=== PATIENT | female | born 1985 | race Caucasian/White ===

== ENCOUNTER 2021-02-19 15:03 | Outpatient (REF) | payer MEDICAID, SELFPAY | END 2021-02-19 15:04 | disposition home or self-care (01) | LOC: HO.LAB 15:03 | PROVIDERS: Visit Provider Internal Medicine | DX: Z20.822 Contact with and (suspected) exposure to COVID-19 (principal) | CPT/HCPCS: C9803; U0003; U0005 ==

== ENCOUNTER 2021-08-07 10:55 | Emergency (ER) | payer MEDICAID, SELFPAY ==
--- NOTE | ~2021-08-07 | XR_ITS ---
EXAMINATION: XR CHEST CLINICAL INFORMATION: Cough COMPARISON: Previous chest x-ray June 2017 TECHNIQUE: 2 views of the chest were obtained. FINDINGS: No significant abnormality is noted involving the heart, lungs, mediastinum, bony thorax or soft tissues. XR/XR chest 2V IMPRESSION: Unremarkable examination.
[2021-08-07 11:43] VITALS: BP 118/62; PULSE 70; RESP 18; TEMP 36.9; O2SAT 99; BMI 38.2
[2021-08-07 12:54] LABS: COVID-19 Test Negative (Negative)
--- NOTE | 2021-08-07 12:58 | ED_ITS ---
HPI - URI/Sore Throat General Chief Complaint: Upper Respiratory Symptoms Stated Complaint: flu like symptoms Time Seen by Provider: 08/07/21 12:38 Source: patient Mode of arrival: ambulatory Limitations: no limitations History of Present Illness HPI Narrative: 35-year-old female previously healthy here with complaints of sore throat, cough, malaise since Monday. No fevers or chills. Shortness of breath or chest pain. No leg swelling or pain. Related Data Previous Rx's Medication Instructions Recorded azithromycin 250 mg tablet See Rx Instructions .ROUTE 08/07/21 .COMPLEX #6 tab Allergies Allergy/AdvReac Type Severity Reaction Status Date / Time Penicillins Allergy Unknown RASH Unverified 07/16/20 17:28 Review of Systems Review of Systems: Yes all other systems are reviewed and are negative Constitutional: Constitutional: Reports no additional constitutional complaints, Denies body ache(s), Denies chills, Denies fever(s), Denies headache(s), Reports malaise and Denies weakness Eyes: Eyes: Reports no additional eye complaints and Denies change in vision ENT: Reports system reviewed and no additional complaints, except as documented, Denies dizziness, Denies headache(s), Denies nasal congestion, Denies nasal discharge, Denies neck pain and Reports sore throat Cardiovascular: Cardiovascular: Reports no additional cardiovascular complaints, Denies chest pain, Denies leg edema and Denies dyspnea Respiratory: Respiratory: Reports no additional respiratory complaints, Reports cough and Denies dyspnea Gastrointestinal: Gastrointestinal: Reports no additional gastrointestinal complaints, Denies abdominal pain, Denies diarrhea, Denies nausea and Denies vomiting Genitourinary: Genitourinary: Reports no additional female genitourinary complaints and Denies urinary incontinence Musculoskeletal: Musculoskeletal: Reports no additional musculoskeletal complaints, Denies back pain, Denies arthralgias, Denies joint swelling, Denies neck pain, Denies numbness and Denies tingling Integumentary/Breasts: Skin/Breast: Reports system reviewed and no additional complaints, except as docu and Denies rash Neurologic: Reports system reviewed and no additional complaints, except as documented, Denies Abnormal speech present, Denies dizziness, Denies headache(s), Denies numbness, Denies tingling and Denies weakness PMFSH Past Medical History Attestation statement: The following information was validated with the patient. Source: old records reviewed and nursing notes reviewed Medical History delivery delivered Surgical History H/O: hysterectomy Social History Social History Advance Directives: No Advance Directives Information Provided: No Patient : No Physical Exam Vital Signs: Vital Signs: Last Vital Signs Temp 98.4 F 08/07/21 11:43 Pulse 70 08/07/21 11:43 Resp 18 08/07/21 11:43 BP 118/62 08/07/21 11:43 Pulse Ox 99 08/07/21 11:43 Body Mass Index 38.2 Const: General: cooperative, healthy appearing, comfortable and no acute distress Orientation/consciousness: patient oriented x3 Limitations: no limitations HENMT: Head: Yes normal to inspection Ears: hearing grossly normal bilaterally and TM's normal bilaterally General nose exam: Normal external nose present Face and sinus: Yes normal facial exam Mouth: Normal oral and palatal mucosa present Throat: Yes posterior oropharynx normal, Yes tonsils normal and Yes uvula midline Eyes: General: appearance normal, both eyes and all related structures Pupils: Equal, round and reactive pupils present Neck: Neck: Yes normal visual inspection, Yes full ROM, Yes no lymphadenopathy and Yes no meningeal signs Chest: Chest palpation & inspection: normal inspection of the chest Resp: Other: mild exp wheezing Frequent bronchospastic cough Effort & Inspection: normal respiratory effort Cardio: Rate: regular rate Rhythm: regular rhythm Peripheral pulses: Peripheral pulses 2+ throughout GI: Inspection: Yes normal to inspection Palpation (GI): Soft to palpation and nontender Auscultation: normal bowel sounds Back/Spine/Pelvis: Thoracic/Lumbar Spine: thoracic and lumbar spine normal to inspection Skin: General skin exam: no rashes or lesions noted Neuro: General: patient oriented x3, no meningeal signs, no focal motor defic its and normal sensation to monofilament Cranial nerves: Yes Equal, round and reactive pupils present Cognition (Neuro): normal cognition Speech: No Abnormal speech present Gait exam (Neuro): Normal gait present Motor exam (neuro): 5/5 motor strength present throughout Extrem: General: Yes normal to inspection, Yes no pedal edema and Yes no calf tenderness Course Course Course Narrative: URI symptoms since Monday. Stable vital signs. Speaking full sentences. Mild expiratory wheezing on exam. Received albuterol MDI with improvement Likely bronchitis. Chest x-ray and COVID screen negative. Posterior oropharynx not consistent with strep pharyngitis Reviewed worrisome signs and symptoms of when to return to the emergency department. Comfortable discharge home. MDM - URI/Sore Throat Medical Records Attestation: I reviewed the patient's medical records. Lab Data Attestation: I reviewed the patient's lab results. Labs: Lab Results 08/07/21 Range/Units 12:32 COVID-19 (RO) Negative (Negative) COVID-19 Clin Com See Note Discharge Plan Discharge Clinical Impression: Bronchitis, Pharyngitis Patient Disposition: Home, Self-Care Instructions: Pharyngitis (ED), How to Use a Metered-Dose Inhaler (ED), Acute B ronchitis (ED) Additional Instructions: Covid test negative Increase fluids, rest Use inhaler 2 puffs every 4-6 hrs Prescriptions: New azithromycin 250 mg tablet See Rx Instructions .ROUTE .COMPLEX Qty: 6 RF: 0 Referrals: Poonam Mcdonnell MD [Primary Care Provider] - 2 days Interventions: ED Discharge Assessment Last Done: 08/07/21 13:40 Discharge Date/Time: 08/07/21 13:41
[2021-08-07] MEDS: Albuterol Sulfate 90 MCG 8 GM INHALER 2 PUFF INHALE (13:37)
== END 2021-08-07 13:41 | disposition home or self-care (01) ==
PROVIDERS: Emergency Provider Emergency Medicine Emergency Medical Services; PCP Family Medicine
DX: J20.9 Acute bronchitis, unspecified (principal); J02.8 Acute pharyngitis due to other specified organisms; R05.9 Cough, unspecified; Z20.822 Contact with and (suspected) exposure to COVID-19; Z79.899 Other long term (current) drug therapy
CPT/HCPCS: 36415; 71046; 87635; 94640; 99283; 99284

== ENCOUNTER 2022-09-27 02:54 | Emergency (ER) | payer MEDICAID, SELFPAY ==
--- NOTE | ~2022-09-27 | XR_ITS ---
EXAMINATION: XR CHEST CLINICAL INFORMATION: Shortness of breath COMPARISON: 08/07/2021 TECHNIQUE: Frontal view of the chest was obtained. FINDINGS: The lungs are mildly hypoinflated. No focal consolidation is seen. No evidence of pneumothorax, pleural effusion, or pulmonary edema. The cardiomediastinal contour is unremarkable. No acute osseous findings are seen. XR/XR chest 1V IMPRESSION: Low lung volumes without acute findings.
--- NOTE | 2022-09-27 03:04 | ED.URI ---
HPI - URI/Sore Throat General Chief Complaint: Upper Respiratory Symptoms Stated Complaint: SOB, body aches Time Seen by Provider: 09/27/22 02:57 Source: patient Mode of arrival: ambulatory Limitations: no limitations History of Present Illness HPI Narrative: Patient comes emergency room complaining of diffuse body aches, chills, generalized malaise for about 5 days. Patient states that she has also sinus pressure, nasal congestion. Patient initially said in triage that she has shortness of breath, however when I spoke with her she denies shortness of breath or chest pain. No nausea vomiting or diarrhea. Patient took ibuprofen approximately 5 hours ago. Related Data Previous Rx's Medication Instructions Recorded azithromycin 250 mg tablet See Rx Instructions PO .COMPLEX #6 08/07/21 tabs acetaminophen 500 mg tablet 500 mg PO Q6H PRN fever or pain 09/27/22 #20 tabs ibuprofen 600 mg tablet 600 mg PO TID PRN fever or pain 09/27/22 #14 tabs oseltamivir 75 mg capsule (Tamiflu) 75 mg PO BID #10 caps 09/27/22 Allergies Allergy/AdvReac Type Severity Reaction Status Date / Time Penicillins Allergy Unknown RASH Unverified 07/16/20 17:28 Review of Systems Review of Systems: Constitutional : No Weight loss, complaining of chills, fatigue, generalized malaise and weakness ENT/Mouth : No Hearing loss, No Ear Pain, complaining of Nasal Congestion, complaining of bilateral sinus pressure, worse in the forehead,, No Hoarseness, No sore throat, No Rhinorrhea, No Swallowing Difficulty Eyes: No Eye Pain, No Swelling, No Redness, No Foreign Body, No Discharge, No Vision Changes Cardiovascular : No Chest Pain, No SOB, No Dyspnea on Exertion, No Orthopnea, No Edema, No Palpitations Respiratory : Complaining of mild Cough, No Sputum, No Wheezing, No Smoke Exposure, No Dyspnea Gastrointestinal : No Nausea, No Vomiting, No Diarrhea, No Constipation, No abdominal Pain, No Hematochezia, No Melena Genitourinary : no irregular bleeding, No Dysuria, No Urinary Frequency, No Hematuria, No Urinary Incontinence, No Urgency, No Flank Pain, No Urinary Flow Changes, No Hesitancy Musculoskeletal : No joint pain, No Myalgias, No Joint Swelling Skin : No Skin Lesions, No rash Neuro : No Weakness, No Numbness, No Paresthesias, No Loss of Consciousness, No Dizziness, No Headache Psych : No Anxiety/Panic, No Depression, No SI/HI/AH/VH, No Social Issues, Heme/Lymph: No Bruising, No Bleeding,No Lymphadenopathy Endocrine : No Polyuria, No Polydipsia, No Temperature Intolerance [facility] Past Medical History Medical History delivery delivered Surgical History H/O: hysterectomy Physical Exam Vital Signs: Vital Signs: Last Vital Signs Temp 97 F 09/27/22 03:17 Pulse 101 H 09/27/22 03:17 Resp 16 09/27/22 03:17 BP 122/77 09/27/22 03:17 Pulse Ox 97 09/27/22 03:17 O2 Del Method 09/27/22 03:17 BMI result Body Mass Index 38.7 Const: Other: Appearance: Alert. Oriented X3. No acute distress. Eyes: Pupils equal, round and reactive to light. ENT: Pharynx normal. Neck: Normal inspection. Neck supple. No lymph nodes noted. No crepitus CVS: Normal heart rate and rhythm. Pulses normal. Normal S1 and S2 Respiratory: No respiratory distress. Breath sounds normal. No Wheezing. No rales Abdomen: Soft and nontender. No rigidity. No distention. Skin: Skin warm , clammy. Normal skin color. Normal skin turgor. Extremities: No lower extremity edema. No Lacerations. No Rash Neuro: Oriented X 3. No motor deficit. No sensory deficit. Moving all extremities. No slurred speech. CN 2 through 12 grossly intact Psych: calm, cooperative, normal affect Course Course Course Narrative: Vitals pending. Patient seems to have a fever. COVID test, influenza test and chest x-ray is pending. Patient states that she is prone to bronchitis. Patient tested negative for COVID but tested positive for influenza A. 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 MDM - URI/Sore Throat Lab Data Labs: Lab Results 09/27/22 09/27/22 Range/Units 03:03 03:03 COVID-19 (RO) Negative (Negative) COVID-19 Clin Com See Note Influenza Type A (AV) Positive A (Negative) Influenza Type B (AV) Negative (Negative) Influenza A & B Note See Note Imaging Data Chest x-ray: My impression: No opacities or consolidation, pneumonia not suspected. Discharge Plan Discharge Clinical Impression: Influenza A Patient Disposition: Home, Self-Care Instructions: Influenza (ED) Additional Instructions: Your medications have been sent to [facility] in [employer]. Please follow-up with your primary care physician tomorrow. If you have any worsening or new symptoms, please return to the emergency room or call 911 Prescriptions: New oseltamivir [Tamiflu] 75 mg capsule 75 mg PO BID Qty: 10 0RF ibuprofen 600 mg tablet 600 mg PO TID PRN (Reason: fever or pain) Qty: 14 0RF acetaminophen 500 mg tablet 500 mg PO Q6H PRN (Reason: fever or pain) Qty: 20 0RF No Action azithromycin 250 mg tablet See Rx Instructions .ROUTE .COMPLEX Qty: 6 0RF Rx Instructions: take 500 mg today (day 1), then 250 mg for 4 days (days 2-5) Stand Alone Forms: Work/School Release
[2022-09-27 03:17] VITALS: BP 122/77; PULSE 101; RESP 16; TEMP 36.1; O2SAT 97; BMI 38.7
[2022-09-27 03:20] LABS: COVID-19 Test Negative (Negative); IDNOW Serial# BCCEAD1C
[2022-09-27 03:22] LABS: IDNOW Serial# 16C4AD1C; Influenza A Positive (Negative); Influenza B2 Negative (Negative)
[2022-09-27] MEDS: Acetaminophen 325 MG TABLET 975 MG PO (03:34)
== END 2022-09-27 04:02 | disposition home or self-care (01) ==
PROVIDERS: Emergency Provider Emergency Medicine
DX: J10.1 Influenza due to other identified influenza virus with other respiratory manifestations (principal); M79.10 Myalgia, unspecified site; R06.02 Shortness of breath; Z79.899 Other long term (current) drug therapy; Z20.822 Contact with and (suspected) exposure to COVID-19
CPT/HCPCS: 71045; 87502; 87635; 99283; 99284

== ENCOUNTER 2023-03-01 05:20 | Emergency (ER) | payer MEDICAID, SELFPAY ==
[2023-03-01 05:39] VITALS: BP 124/62; PULSE 90; RESP 18; TEMP 36.5; O2SAT 99; BMI 39.5
--- NOTE | 2023-03-01 08:28 | ED.BACK ---
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 Related Data Previous Rx's Medication Instructions Recorded azithromycin 250 mg tablet See Rx Instructions PO .COMPLEX #6 08/07/21 tabs acetaminophen 500 mg tablet 500 mg PO Q6H PRN fever or pain 09/27/22 #20 tabs ibuprofen 600 mg tablet 600 mg PO TID PRN fever or pain 09/27/22 #14 tabs oseltamivir 75 mg capsule (Tamiflu) 75 mg PO BID #10 caps 09/27/22 Allergies Allergy/AdvReac Type Severity Reaction Status Date / Time Penicillins Allergy Unknown RASH Unverified 07/16/20 17:28 Review of Systems Review of Systems: Pertinent positives and negatives as stated in HPI PMFSH Past Medical History Source: nursing notes reviewed Medical History delivery delivered Surgical History H/O: hysterectomy Social History Social History Alcohol intake: unknown Advance Directives: No Advance Directives Information Provided: No Physical Exam Vital Signs: Vital Signs: Last Vital Signs Temp 97.7 F 03/01/23 05:39 Pulse 90 03/01/23 05:39 Resp 18 03/01/23 05:39 BP 124/62 03/01/23 05:39 Pulse Ox 99 03/01/23 05:39 O2 Del Method Room Air 03/01/23 05:39 BMI result Body Mass Index 39.5 VITAL SIGNS: Reviewed. GENERAL: Well developed, well nourished, in no acute distress. HEAD: Normocephalic/atraumatic EYES: PERRLA, EOMI EARS: Ext canals without abnormality, TMs non-bulging and non-erythematous NOSE: Nares patent bilateral OROPHARYNX: no oral lesions noted, posterior pharynx clear and non-erythematous without noted tonsillar enlargement/erythema/exudates NECK: Supple, no adenopathy LUNGS: Normal breath sounds. No adventitious sounds or accessory muscle use. SpO2<99> CARDIOVASCULAR: Regular rate and rhythm without noted murmurs. ABDOMEN: Soft, non-tender, non-distended with bowel sounds. BACK: No midline vertebral tenderness or step-offs. MUSCULOSKELETAL: No tenderness, deformities, or effusions noted on gross inspection. EXTREMITIES: No cyanosis, clubbing or edema. SKIN: Inspection of the skin reveals no rashes NEUROLOGIC: Alert and oriented x 4. Strength and sensation to light touch were grossly intact x 4, DTRs intact. Medical Decision Making Medical Decision Making MDM Narrative: 37-year-old female with chronic back pain no clinical suspicion for cauda equina or spinal abscess, or other red flags. Patient will be provided with combination analgesics to be combined with the muscle relaxant which was provided by her primary care provider. Differential Diagnosis Please see the discussion above External Record Review External record reviewed: Prior outpatient labs Discharge Plan Discharge Clinical Impression: Chronic back pain Patient Disposition: Home, Self-Care Instructions: Back Pain (ED), Lower Back Exercises (ED) Additional Instructions: 1. Tylenol 1000 mg, por v?a oral, cada 6 horas seg?n sea necesario para controlar el dolor. No exceda los 4000 mg dentro de las 24 horas. 2. Ibuprofeno 400 mg, por v?a oral con leche o alimentos, cada 6 horas seg?n sea necesario para controlar el dolor. Le recomiendo que tome yvonne medicamento con Tylenol para mejorar el alivio de los s?ntomas. 3. Las terapias complementarias adicionales pueden ser parches de lidoca?na de venta juan carlos que se aplican en el ?radha de m?xima sensibilidad, as? annel parches de calentamiento de venta juan carlos llamados ThermaCare. 4. Isabella un seguimiento con tejeda proveedor de atenci?n primaria y hable sobre po posible fisioterapia. Regrese a la david de emergencias si los s?ntomas empeoran. 1. Tylenol 1000 mg, orally, every 6 hours as needed for pain control. Do not exceed 4000 mg within 24 hours. 2. Ibuprofen 400 mg, orally with milk or food, every 6 hours as needed for pain control. I recommend that you take this medication with the Tylenol for improved symptom relief. 3. Additional adjunct therapies can be [id number] lidocaine patches apply to area of maximal tenderness as well as [id number] heating patches called ThermaCare. 4. Follow-up with your primary care provider and discuss possible physical therapy. Return to the ER for any worsening symptoms. Prescriptions: No Action azithromycin 250 mg tablet See Rx Instructions .ROUTE .COMPLEX Qty: 6 0RF Rx Instructions: take 500 mg today (day 1), then 250 mg for 4 days (days 2-5) oseltamivir [Tamiflu] 75 mg capsule 75 mg PO BID Qty: 10 0RF ibuprofen 600 mg tablet 600 mg PO TID PRN (Reason: fever or pain) Qty: 14 0RF acetaminophen 500 mg tablet 500 mg PO Q6H PRN (Reason: fever or pain) Qty: 20 0RF Referrals: [facility] [Primary Care Provider] - Print Language: Bulgarian
[2023-03-01 08:38] LABS: Appearance Urine Clear; Color Urine Yellow; Glucose Urine UA Negative (Negative); Leukocyte Esterase Urine Small (1+) (Negative); Nitrite Urine Negative (Negative); PH 5.5 (5.0-9.0); UMIC TRIGGER UACC YES; Urine Blood Negative (Negative); Urine Ketones Negative (Negative); Urine Protein Negative (Neg-Trace)
[2023-03-01 08:39] LABS: UPreg QC Valid YES; Urine Pregnancy NEGATIVE (NEGATIVE)
[2023-03-01 08:41] LABS: Bacteria Urine 1+ (None Seen); Hyaline Casts Urine 0-2 /LPF (0-2); RBC Urine 0-2 /HPF (0-2); UACC Culture Trigger YES
[2023-03-01] MEDS: Acetaminophen 325 MG TABLET 975 MG PO (08:53)
[2023-03-01] MEDS: Ibuprofen 400 MG TABLET PO (08:53)
[2023-03-01] MEDS: Lidocaine 4 % Patch ADH..PATCH 1 PATCH TRANSDERMA (08:54)
== END 2023-03-01 08:57 | disposition home or self-care (01) ==
PROVIDERS: Nurse Practitioner Family; Emergency Provider Student in an Organized Health Care Education/Training Program
DX: G89.29 Other chronic pain (principal); M54.9 Dorsalgia, unspecified
CPT/HCPCS: 81001; 81025; 87086; 99283

== ENCOUNTER 2024-08-20 04:50 | Emergency (ER) | payer MEDICAID, SELFPAY ==
--- NOTE | ~2024-08-20 | XR_ITS ---
EXAMINATION: XR CHEST 2 VIEW CLINICAL INFORMATION: Cough COMPARISON: 08/07/2021 and 09/27/2022 TECHNIQUE: PA and lateral views of the chest obtained. FINDINGS: There are low volumes but the lungs are clear. There are no pleural effusions. The cardiomediastinal silhouette is normal. XR/XR chest 2V IMPRESSION: No acute disease. Electronically signed by: Pierce Angel MD 08/20/2024 09:34 AM EDT
[2024-08-20 04:53] VITALS: BP 115/65; PULSE 107; RESP 18; TEMP 36.8; O2SAT 96; BMI 39.5
[2024-08-20 05:11] LABS: Basophils Percent Auto 0.3 % (0-2); Eosinophils Absolute Auto 0.2 X10*3/uL (0.0-0.4); Eosinophils Percent Auto 2.1 % (0-4); Hematocrit 38.7 % (37.0-47.0); Hemoglobin 13.2 g/dl (12.0-16.0); Imm Gran Abs Auto 0.04 X10*3/uL (0.00-0.03); Imm Gran Pct Auto 0.4 % (0.0-0.4); Lymphocytes Absolute Auto 1.6 X10*3/uL (1.2-4.9); MANUAL DIFF FLAG NO; Mean Corpuscular HGB Conc 34.1 g/dl (31.0-35.0); Mean Corpuscular Hemoglobin 28.8 pg (27.0-33.0); Mean Corpuscular Volume 84.3 fL (80.0-98.0); Mean Platelet Volume 9.4 fL (9.4-12.3); Monocytes Absolute Auto 0.7 X10*3/uL (0.1-1.2); Monocytes Percent Auto 6.7 % (2-11); Neutrophils Absolute Auto 7.3 x10*3/uL (2.0-8.3); Neutrophils Percent Auto 74.5 % (45-73); Platelet Count 270 X10*3/uL (160-400); Red Blood Count 4.59 X10*6/uL (4.20-5.50); Red Cell Distribution Width 12.7 % (11.0-16.0); White Blood Count 9.8 X10*3/uL (4.8-10.8)
[2024-08-20 05:25] LABS: Alanine Aminotransferase 40 U/L (0-31); Albumin Level 4.3 g/dL (3.5-5.0); Alkaline Phosphatase 69 U/L (39-117); Anion Gap 13 (12-20); Aspartate Amino Transferase 26 U/L (5-31); Bilirubin Total 0.7 mg/dL (0.0-1.0); Blood Urea Nitrogen 12 mg/dL (9-16); Calcium 9.3 mg/dL (8.4-10.2); Carbon Dioxide 24 mmol/L (22-29); Chloride 105 mmol/L (96-108); Creatinine Clr Calc Pharmacy 114.9; Estimated Glomerular Filt Rate > 60; Glucose Random 118 mg/dL (60-115); Sodium 138 mmol/L (135-145); Total Protein 7.4 g/dL (6.5-8.0)
[2024-08-20 06:00] VITALS: RESP 15
--- NOTE | 2024-08-20 07:10 | ED_ITS ---
HPI - Headache General Chief Complaint: Headache Stated Complaint: body aches, headache Time Seen by Provider: 08/20/24 06:55 Source: patient Mode of arrival: ambulatory Limitations: no limitations History of Present Illness ED Provider: Elias Shay PA-C HPI Narrative: 39 yo female the ER for evaluation of 3 days of headache and body aches. She reports yesterday she developed worsening of the headache, it involves her left side of her face, behind her eye. She reported some tingling sensation left side of her face that comes and goes. She took some Excedrin migraine for her headache yesterday at noon with no improvement. She denies any vision changes. She reports photophobia. No neck pain. No fever or chills. She has had diffuse body aches and a cough that started yesterday. No known sick contacts. No chest pain, abdominal pain, nausea, vomiting, diarrhea. No urinary symptoms. No weakness or numbness MD elicited complaint: headache Onset (ago): day(s) Onset description: gradually Location: left Severity: moderate Quality & Timing: throbbing Exacerbating factors: light Relieving factors: nothing Context: occurred at rest Associated symptoms: nausea, photophobia, sensitivity to sound, eye pain and cough Treatments prior to arrival: none Related Data Previous Rx's ?Medication ?Instructions ?Recorded azithromycin 250 mg tablet See Rx Instructions PO .COMPLEX #6 08/07/21 tabs acetaminophen 500 mg tablet 500 mg PO Q6H PRN fever or pain 09/27/22 #20 tabs ibuprofen 600 mg tablet 600 mg PO TID PRN fever or pain 09/27/22 #14 tabs oseltamivir 75 mg capsule (Tamiflu) 75 mg PO BID #10 caps 09/27/22 csgtgpowsi-qfvlyytepxenm-lqdlcxrm 1 tab PO Q4-6H PRN headache #10 08/20/24 50 mg-325 mg-40 mg tablet tabs Allergies Allergy/AdvReac Type Severity Reaction Status Date / Time Penicillins Allergy Unknown RASH Verified 08/20/24 04:56 Review of Systems 2 Review of Systems: Yes all other systems are reviewed and are negative [facility] Past Medical History Medical History delivery delivered Surgical History H/O: hysterectomy Social History Social History (System 11/17/23 @ 14:55 by Marylou Baird) Alcohol intake: unknown Smoked in Last 30 Days: No Use of substances other than those prescribed or required for medical reasons: No Advance Directives: No Advance Directives Information Provided: No Do you have a plan to hurt others: No Plan Patient : No Physical Exam 2 Vital Signs: Vital Signs: Last Vital Signs Temp 99.2 F 08/20/24 08:00 Pulse 95 08/20/24 08:00 Resp 15 08/20/24 08:00 BP 103/54 L 08/20/24 08:00 Pulse Ox 96 08/20/24 08:00 O2 Del Method Room Air 08/20/24 08:00 BMI result Body Mass Index 39.5 Appearance: Alert. Oriented X3. No acute distress. Head: normocephalic, atraumatic. Eyes: Pupils equal, round and reactive to light. EOMI. No nystagmus ENT: Pharynx normal. No tonsillar swelling or exudate. Neck: Normal inspection. Neck supple. CVS: Normal heart rate and rhythm. Pulses normal. Respiratory: No respiratory distress. Breath sounds normal. Abdomen: Soft and nontender. +BS x4 Skin: Skin warm and dry. Normal skin color. Normal skin turgor. No rashes. Extremities: No lower extremity edema. No joint swelling. Neuro/psych: Oriented X 3. No motor deficit. No sensory deficit. Nonfocal. CN II-XII intact. Normal speech and cognition. Medications Administered Discontinued Medications Generic Name Dose Route Start Last Admin Trade Name Yolis PRN Reason Stop Dose Admin Acetaminophen/Butalbital/Caffeine 1 tab 08/20/24 07:36 08/20/24 08:11 Butalb/Acetamin/Caff 50/325/40 Tablet PO 08/20/24 07:37 1 tab ONCE ONE Administration Ketorolac Tromethamine 30 mg 08/20/24 07:36 08/20/24 08:11 Ketorolac Tromethamine 30 Mg/Ml Vial IM 08/20/24 07:37 30 mg ONCE ONE Administration Medical Decision Making Medical Decision Making MDM Narrative: 39-year-old female presents to the ER for evaluation of diffuse body aches, left-sided headache for the last 3 days. She has photophobia and nausea with the headache. Denies history of migraines in the past. Clinical presentation is consistent with a migraine headache. She was treated with Fioricet and Toradol. Symptoms improved. Her lab work is unremarkable, no major metabolic derangement, no leukocytosis. She is negative for COVID, flu, RSV. Her chest x-ray is normal. Her lungs are clear on exam and she is oxygenating well. She is nonfocal neurologically. She improved with Fioricet and Toradol. At this time she is stable for discharge home with short course of Fioricet, supportive care and outpatient follow-up. Most likely viral etiology causing migraine headache. Stable for DC. Differential Diagnosis Differential Diagnoses: The differential diagnosis associated with the presentation includes migraine headache, tension headache, viral syndrome Lab Data MDM Lab Attestation statement: I reviewed the patient's lab results. normal CBC, no major metabolic derangement 08/20/24 05:07 08/20/24 05:07 Labs: Lab Results 08/20/24 08/20/24 Range/Units 05:07 07:18 WBC 9.8 (4.8-10.8) X10*3/uL RBC 4.59 (4.20-5.50) X10*6/uL Hgb 13.2 (12.0-16.0) g/dl Hct 38.7 (37.0-47.0) % MCV 84.3 (80.0-98.0) fL MCH 28.8 (27.0-33.0) pg MCHC 34.1 (31.0-35.0) g/dl RDW 12.7 (11.0-16.0) % Plt Count 270 (160-400) X10*3/uL MPV 9.4 (9.4-12.3) fL Immature Gran % (Auto) 0.4 (0.0-0.4) % Neut % (Auto) 74.5 H (45-73) % Lymph % (Auto) 16.0 L (20-40) % [place] % (Auto) 6.7 (2-11) % Eos % (Auto) 2.1 (0-4) % Baso % (Auto) 0.3 (0-2) % Lymph # (Auto) 1.6 (1.2-4.9) X10*3/uL [place] # (Auto) 0.7 (0.1-1.2) X10*3/uL Eos # (Auto) 0.2 (0.0-0.4) X10*3/uL Baso # (Auto) 0.0 (0.0-0.2) X10*3/uL Abs Immat Gran (auto) 0.04 H (0.00-0.03) X10*3/uL Absolute Neuts (auto) 7.3 (2.0-8.3) x10*3/uL Absolute Nucleated RBC 0.000 (0.0-0.012) X10*3/uL Nucleated RBC % (auto) 0.0 (0.0-0.2) /100WBC Sodium 138 (135-145) mmol/L Potassium 4.0 (3.3-5.1) mmol/L Chloride 105 (96-108) mmol/L Carbon Dioxide 24 (22-29) mmol/L Anion Gap 13 (12-20) BUN 12 (9-16) mg/dL Creatinine 0.83 (0.5-1.4) mg/dL Estim Creat Clear Calc 114.9 Estimated GFR > 60 Random Glucose 118 H (60-115) mg/dL Calcium 9.3 (8.4-10.2) mg/dL Total Bilirubin 0.7 (0.0-1.0) mg/dL AST 26 (5-31) U/L ALT 40 H (0-31) U/L Alkaline Phosphatase 69 (39-117) U/L Total Protein 7.4 (6.5-8.0) g/dL Albumin 4.3 (3.5-5.0) g/dL Influenza Type A (PCR) NEGATIVE (Negative) Influenza Type B (PCR) NEGATIVE (Negative) RSV RNA Qual (PCR) NEGATIVE (Negative) SARS-CoV-2 RNA (RT-PCR) NEGATIVE (Negative) Independent Interpretation I performed an independent interpretation of an: Plain X-Ray Interpretation: no focal infiltrate Radiology Impression Discussion of test interpretation with radiology: I have reviewed the radiologist's reading. External Record Review External record reviewed: Outpatient record and Prior outpatient labs Tests considered The following testing was considered but not selected: CT head considered - low suspicion for organic cause Prescription Management I considered prescription management with: Pain Medication Critical Care Time Critical Care Time Critical Care Time: No Discharge Plan Discharge Clinical Impression: Acute viral syndrome Headache Qualifiers: Headache type: unspecified Headache chronicity pattern: unspecified pattern I ntractability: not intractable Qualified Code(s): R51.9 - Headache, unspecified Patient Disposition: Home, Self-Care Instructions: Acute Headache (DC), Viral Syndrome (ED) Additional Instructions: Your lab workup today was unremarkable. You tested negative for COVID, flu, RSV. Your chest x-ray was normal. Your most likely suffering from a viral illness that is causing her symptoms. Recommend rest, plenty of oral hydration. Take fakl-hgp-hvafqkd cold and flu medications as needed for your symptoms. Recommend ibuprofen every 6 hours for headache and body aches. Take the prescribed medication as needed for headaches. Follow-up with her primary care doctor. If you develop new or worsening symptoms call 911 or come back to the ER for further evaluation. Prescriptions: New kqenuvtgsg-xyqtmjfpbrpcf-mbiq 50-325-40 mg tablet 1 tab PO Q4-6H PRN (Reason: headache) Qty: 10 0RF No Action azithromycin 250 mg tablet See Rx Instructions .ROUTE .COMPLEX Qty: 6 0RF Rx Instructions: take 500 mg today (day 1), then 250 mg for 4 days (days 2-5) oseltamivir [Tamiflu] 75 mg capsule 75 mg PO BID Qty: 10 0RF ibuprofen 600 mg tablet 600 mg PO TID PRN (Reason: fever or pain) Qty: 14 0RF acetaminophen 500 mg tablet 500 mg PO Q6H PRN (Reason: fever or pain) Qty: 20 0RF Referrals: Poonam Mcdonnell MD [Primary Care Provider] - Stand Alone Forms: Work/School Release Print Language: Setswana
[2024-08-20 08:00] VITALS: BP 103/54; PULSE 95; RESP 15; TEMP 37.3; O2SAT 96
[2024-08-20 08:08] LABS: Influenza A PCR NEGATIVE (Negative); Influenza B PCR NEGATIVE (Negative); Resp Syncy Virus RNA Qual PCR NEGATIVE (Negative); SARS COV2 PCR INHOUSE NEGATIVE (Negative)
[2024-08-20] MEDS: Butalb/Acetamin/Caff 50/325/40 TABLET 1 TAB PO (08:11)
[2024-08-20] MEDS: Ketorolac Tromethamine 30 MG/ML VIAL IM (08:11)
[2024-08-20 10:33] VITALS: BP 115/68; PULSE 84; RESP 16; TEMP 37.3; O2SAT 97
== END 2024-08-20 10:34 | disposition home or self-care (01) ==
PROVIDERS: Physician Assistant; Emergency Provider Emergency Medicine; PCP Family Medicine
DX: B34.9 Viral infection, unspecified (principal); R51.9 Headache, unspecified; H57.13 Ocular pain, bilateral; M79.10 Myalgia, unspecified site; R11.2 Nausea with vomiting, unspecified; Z03.818 Encounter for observation for suspected exposure to other biological agents ruled out; Z79.899 Other long term (current) drug therapy
CPT/HCPCS: 0241U; 36415; 71046; 80053; 85025; 96372; 99284; J1885

== ENCOUNTER 2024-08-23 06:43 | Emergency (ER) | payer MEDICAID, SELFPAY ==
--- NOTE | ~2024-08-23 | XR_ITS ---
EXAMINATION: XR CHEST CLINICAL INFORMATION: Cough. Fever. COMPARISON: Most recent chest radiograph dated 08/20/2024. TECHNIQUE: 2 views of the chest were obtained. FINDINGS: New airspace opacity within the posterior left lower lobe, not seen on the prior x-ray and concerning for early pneumonia. No pleural effusion or pneumothorax. Stable cardiomediastinal silhouette. XR/XR chest 2V IMPRESSION: New airspace opacity within the posterior left lower lobe, concerning for early pneumonia. Electronically signed by: Yung Eli MD 08/23/2024 10:17 AM EDT
[2024-08-23 06:56] VITALS: BP 121/71; PULSE 123; RESP 20; TEMP 38.4; O2SAT 96; BMI 39.5
--- NOTE | 2024-08-23 07:12 | ED.GENADULT ---
HPI - General Adult General Chief complaint: General Medical Stated complaint: migraine, fever Time Seen by Provider: 08/23/24 07:11 Source: patient, RN notes reviewed and old records reviewed Mode of arrival: ambulatory Limitations: no limitations History of Present Illness ED Provider: Elias Shay PA-C HPI narrative: 39 yo female presents to the ER for evaluation of over 1 week of ongoing headaches, dizziness, nausea, intermittent fevers, poor appetite and weakness. She also reports a cough and general malaise. She was seen here 5 days ago and had an unremarkable workup, discharged with instructions for supportive care for likely viral illness. Patient reports over the last week she has still been feeling unwell. She had 2 episodes of vomiting this week. She has been nauseous with poor appetite. She has a dry cough. No difficulty breathing or chest pain. She reports her headache was on the left side now it is posterior headache, she has no neck pain. No rashes. No recent tick bites. No joint swelling. No known sick contacts. MD complaint: weakness, fever Onset (ago): week(s) (1) Location: head Radiation: non-radiation Severity: moderate Quality: aching Pain Consistency: constant Relieving factors: none Exacerbating factors: none Associated symptoms: cough, fever/chills, headaches, loss of appetite, nausea/vomiting and weakness Treatments prior to arrival: none Related Data Previous Rx's ?Medication ?Instructions ?Recorded azithromycin 250 mg tablet See Rx Instructions PO .COMPLEX #6 08/07/21 tabs acetaminophen 500 mg tablet 500 mg PO Q6H PRN fever or pain 09/27/22 #20 tabs ibuprofen 600 mg tablet 600 mg PO TID PRN fever or pain 09/27/22 #14 tabs oseltamivir 75 mg capsule (Tamiflu) 75 mg PO BID #10 caps 09/27/22 vcasgxesie-gpceftslxokbe-drjwuaox 1 tab PO Q4-6H PRN headache #10 08/20/24 50 mg-325 mg-40 mg tablet tabs azithromycin 250 mg tablet See Rx Instructions PO .COMPLEX #6 08/23/24 (Zithromax Z-Amari) tabs cefpodoxime 200 mg tablet 200 mg PO BID #14 tabs 08/23/24 Allergies Allergy/AdvReac Type Severity Reaction Status Date / Time Penicillins Allergy Unknown RASH Verified 08/23/24 06:58 Review of Systems Review of Systems: Yes all other systems are reviewed and are negative [facility] Past Medical History Medical History delivery delivered Surgical History H/O: hysterectomy Social History Social History (System 11/17/23 @ 14:55 by Marylou Baird) Alcohol intake: unknown Smoked in Last 30 Days: No Use of substances other than those prescribed or required for medical reasons: No Advance Directives: No Advance Directives Information Provided: Yes Patient : No Physical Exam ED Vital Signs: Vital Signs - 24 hr 08/23/24 06:56 08/23/24 08:03 08/23/24 09:06 Temperature 101.2 F H 98.4 F Pulse Rate 123 H 99 89 Respiratory Rate 20 14 16 Blood Pressure 121/71 117/63 102/59 L Pulse Oximetry 96 94 94 Oxygen Delivery Method Room Air Room Air Room Air 08/23/24 09:44 Temperature 98.5 F Pulse Rate 74 Respiratory Rate 16 Blood Pressure 104/57 L Pulse Oximetry 95 Oxygen Delivery Method Room Air BMI result Body Mass Index 39.5 Appearance: Alert. Oriented X3. No acute distress. Head: normocephalic, atraumatic. Eyes: Pupils equal, round and reactive to light. ENT: Pharynx normal. No tonsillar swelling or exudate. Neck: Normal inspection. Neck supple. CVS: Normal heart rate and rhythm. Pulses normal. Respiratory: No respiratory distress. Breath sounds normal. Abdomen: Soft and nontender. +BS x4 Skin: Skin warm and dry. Normal skin color. Normal skin turgor. No rashes. Extremities: No lower extremity edema. No joint swelling. Neuro/psych: Oriented X 3. No motor deficit. No sensory deficit. CN II-XII intact. Normal speech and cognition. Medications Administered Discontinued Medications Generic Name Dose Route Start Last Admin Trade Name Freq PRN Reason Stop Dose Admin Acetaminophen 975 mg 08/23/24 07:11 08/23/24 07:56 Acetaminophen 325 Mg Tablet PO 08/23/24 07:12 975 mg ONCE ONE Administration Lactated Ringer's 1,000 mls @ 999 mls/hr 08/23/24 07:15 08/23/24 09:00 Lr IV 08/23/24 08:15 Infused .Q1H1M MEENA Infusion Ketorolac Tromethamine 30 mg 08/23/24 07:49 08/23/24 07:59 Ketorolac Tromethamine 30 Mg/Ml Vial IVPUSH 08/23/24 07:50 30 mg ONCE ONE Administration Ondansetron HCl 4 mg 08/23/24 07:49 08/23/24 07:59 Ondansetron Hcl 4 Mg/2 Ml Vial IVPUSH 08/23/24 07:50 4 mg ONCE ONE Administration Medical Decision Making Medical Decision Making [facility] Narrative: 39-year-old female presents to the ER for evaluation of over 1 week of headaches, dizziness, nausea, intermittent fevers, poor appetite, weakness and coughing. She is febrile and tachycardic on arrival. She is nontoxic appearing. She is not hypoxic, not in any distress. Unremarkable workup when she was here on Monday. Repeat testing today shows no leukocytosis, no anemia. No significant metabolic derangement on her chemistry. No signs of dehydration. An IV was established and she was given IV fluids, Toradol, Tylenol and Zofran. She was feeling symptomatically better. She tested negative for COVID, flu, RSV. Chest x-ray showing a new left lower lobe infiltrate consistent with early pneumonia. She is not hypoxic. She also has a possible urinary tract infection. Will treat with azithromycin and cefpodoxime for community-acquired pneumonia, this will also treat potential UTI. At this time comfortable discharge home with oral antibiotics and supportive care. Patient agrees with plan and return precautions were discussed. Differential Diagnosis Differential Diagnoses: The differential diagnosis associated with the presentation includes Pneumonia, UTI, COVID, flu, viral meningitis, low suspicion for intra-abdominal process or bacterial meningitis Admission/Observation Consideration of admission/observation: Escalation of care including admission/observation considered Lab Data [facility] Lab Attestation statement: I reviewed the patient's lab results. Normal CBC, no major metabolic derangement, elevated inflammatory marker 08/23/24 07:09 08/23/24 07:09 Labs: Lab Results 08/23/24 08/23/24 08/23/24 Range/Units 07:09 07:54 09:48 WBC 9.3 (4.8-10.8) X10*3/uL RBC 4.84 (4.20-5.50) X10*6/uL Hgb 14.0 (12.0-16.0) g/dl Hct 40.6 (37.0-47.0) % MCV 83.9 (80.0-98.0) fL MCH 28.9 (27.0-33.0) pg MCHC 34.5 (31.0-35.0) g/dl RDW 13.0 (11.0-16.0) % Plt Count 223 (160-400) X10*3/uL MPV 9.3 L (9.4-12.3) fL Immature Gran % (Auto) 0.5 H (0.0-0.4) % Neut % (Auto) 81.4 H (45-73) % Lymph % (Auto) 10.2 L (20-40) % [place] % (Auto) 7.1 (2-11) % Eos % (Auto) 0.4 (0-4) % Baso % (Auto) 0.4 (0-2) % Lymph # (Auto) 1.0 L (1.2-4.9) X10*3/uL [place] # (Auto) 0.7 (0.1-1.2) X10*3/uL Eos # (Auto) 0.0 (0.0-0.4) X10*3/uL Baso # (Auto) 0.0 (0.0-0.2) X10*3/uL Abs Immat Gran (auto) 0.05 H (0.00-0.03) X10*3/uL Absolute Neuts (auto) 7.6 (2.0-8.3) x10*3/uL Absolute Nucleated RBC 0.000 (0.0-0.012) X10*3/uL Nucleated RBC % (auto) 0.0 (0.0-0.2) /100WBC ESR 67 H (0-20) MM/HR Sodium 137 (135-145) mmol/L Potassium 4.1 (3.3-5.1) mmol/L Chloride 99 (96-108) mmol/L Carbon Dioxide 26 (22-29) mmol/L Anion Gap 16 (12-20) BUN 9 (9-16) mg/dL Creatinine 1.02 (0.5-1.4) mg/dL Estim Creat Clear Calc 93.5 Estimated GFR > 60 Random Glucose 192 H (60-115) mg/dL Lactic Acid 1.8 (0.5-2.0) mmol/L Calcium 9.5 (8.4-10.2) mg/dL Total Bilirubin 0.7 (0.0-1.0) mg/dL AST 28 (5-31) U/L ALT 39 H (0-31) U/L Alkaline Phosphatase 68 (39-117) U/L C-Reactive Protein 12.67 H (< or = 0.50) mg/dL Total Protein 8.1 H (6.5-8.0) g/dL Albumin 4.3 (3.5-5.0) g/dL Beta HCG, Quant < 2 mIU/mL Urine Color Yellow Urine Appearance Cloudy Urine pH 6.0 (5.0-9.0) Ur Specific [place] 1.015 (1.005-1.025) Urine Protein Negative (Neg-Trace) mg/dL Urine Glucose (UA) Negative (Negative) mg/dL Urine Ketones Negative (Negative) mg/dL Urine Blood Negative (Negative) Urine Nitrite Negative (Negative) Ur Leukocyte Esterase Moderate (2+) H (Negative) Urine RBC 0-2 (0-2) /HPF Urine WBC 11-20 H (0-5) /HPF Ur Squamous Epith Cells >20 (0-2) /HPF Urine Bacteria 4+ (None Seen) Hyaline Casts 0-2 (0-2) /LPF Influenza Type A (PCR) NEGATIVE (Negative) Influenza Type B (PCR) NEGATIVE (Negative) RSV RNA Qual (PCR) NEGATIVE (Negative) SARS-CoV-2 RNA (RT-PCR) NEGATIVE (Negative) Independent Interpretation I performed an independent interpretation of an: Plain X-Ray Interpretation: Chest x-ray with subtle left lower lobe opacities Radiology Impression Discussion of test interpretation with radiology: I have reviewed the radiologist's reading. Independent Historian Clinical information obtained from an independent historian. History obtained from or confirmed by: Spouse External Record Review External record reviewed: Outpatient record, Prior outpatient labs and Prior outpatient radiology Prescription Management I considered prescription management with: Pain Medication and Antibiotic Critical Care Time Critical Care Time Critical Care Time: No Discharge Plan Discharge Clinical Impression: CAP (community acquired pneumonia), UTI (urinary tract infection) Patient Disposition: Home, Self-Care Instructions: Urinary Tract Infection in Women (DC), Community Acquired Pneumonia (DC) Additional Instructions: Your lab workup today was reassuring. Your x-ray showed early pneumonia in the left lower lung. Your urine test was consistent with a urinary tract infection. Take the prescribed antibiotics as directed, complete the entire course and do not miss any doses Rest and drink plenty of fluids Take Motrin Tylenol as needed for headaches and fevers. Follow-up with your doctor If you develop new or worsening symptoms call 911 or come back to the ER for further evaluation. Prescriptions: New azithromycin [Zithromax Z-Amari] 250 mg tablet See Rx Instructions .ROUTE .COMPLEX Qty: 6 0RF Rx Instructions: take 500 mg today (day 1), then 250 mg for 4 days (days 2-5) cefpodoxime 200 mg tablet 200 mg PO BID Qty: 14 0RF Rx Instructions: must administer with a meal/food No Action azithromycin 250 mg tablet See Rx Instructions .ROUTE .COMPLEX Qty: 6 0RF Rx Instructions: take 500 mg today (day 1), then 250 mg for 4 days (days 2-5) oseltamivir [Tamiflu] 75 mg capsule 75 mg PO BID Qty: 10 0RF ibuprofen 600 mg tablet 600 mg PO TID PRN (Reason: fever or pain) Qty: 14 0RF acetaminophen 500 mg tablet 500 mg PO Q6H PRN (Reason: fever or pain) Qty: 20 0RF mizhkgvqzn-kujzidfsssygj-spkd 50-325-40 mg tablet 1 tab PO Q4-6H PRN (Reason: headache) Qty: 10 0RF Stand Alone Forms: Work/School Release Print Language: Kyrgyz
[2024-08-23 07:13] LABS: MANUAL DIFF FLAG NO
--- NOTE | 2024-08-23 07:15 | PC.NURSE ---
a&ox4. sinus tachycardic on the surveillance system monitor. pt denies any chest pain/palpitations. pt currently febrile - states she last took tylenol @ 2200 last night w/ no relief. pt represents to the ED w/ same sx as to when she presented to the ED on monday. pt reports increased weakness, decreased PO intake, left sided CRUZ w/ associated dizziness/lightheadedness and nausea/vomiting. pt denies abd pain. nontender w/ palpation. 20gIV placed in the left AC - labs obtained/sent to lab. on RA w/o difficulty. no sob/wob noted. respirations even/unlabored. plan of care ongoing. call goodwin placed within reach.
[2024-08-23 07:17] LABS: Basophils Percent Auto 0.4 % (0-2); Eosinophils Percent Auto 0.4 % (0-4); Hematocrit 40.6 % (37.0-47.0); Imm Gran Abs Auto 0.05 X10*3/uL (0.00-0.03); Imm Gran Pct Auto 0.5 % (0.0-0.4); Lymphocytes Percent Auto 10.2 % (20-40); Mean Corpuscular HGB Conc 34.5 g/dl (31.0-35.0); Mean Corpuscular Hemoglobin 28.9 pg (27.0-33.0); Mean Corpuscular Volume 83.9 fL (80.0-98.0); Mean Platelet Volume 9.3 fL (9.4-12.3); Monocytes Absolute Auto 0.7 X10*3/uL (0.1-1.2); Monocytes Percent Auto 7.1 % (2-11); Neutrophils Absolute Auto 7.6 x10*3/uL (2.0-8.3); Neutrophils Percent Auto 81.4 % (45-73); Platelet Count 223 X10*3/uL (160-400); Red Blood Count 4.84 X10*6/uL (4.20-5.50); White Blood Count 9.3 X10*3/uL (4.8-10.8)
[2024-08-23 07:40] LABS: Alanine Aminotransferase 39 U/L (0-31); Albumin Level 4.3 g/dL (3.5-5.0); Alkaline Phosphatase 68 U/L (39-117); Anion Gap 16 (12-20); Aspartate Amino Transferase 28 U/L (5-31); Bilirubin Total 0.7 mg/dL (0.0-1.0); Blood Urea Nitrogen 9 mg/dL (9-16); C Reactive Protein 12.67 mg/dL (< or = 0.50); Calcium 9.5 mg/dL (8.4-10.2); Carbon Dioxide 26 mmol/L (22-29); Chloride 99 mmol/L (96-108); Creatinine Clr Calc Pharmacy 93.5; Estimated Glomerular Filt Rate > 60; Glucose Random 192 mg/dL (60-115); Potassium 4.1 mmol/L (3.3-5.1); Sodium 137 mmol/L (135-145); Total Protein 8.1 g/dL (6.5-8.0)
[2024-08-23 07:46] LABS: HCG Quantitative < 2 mIU/mL
[2024-08-23 07:51] LABS: Influenza A PCR NEGATIVE (Negative); Influenza B PCR NEGATIVE (Negative); Resp Syncy Virus RNA Qual PCR NEGATIVE (Negative); SARS COV2 PCR INHOUSE NEGATIVE (Negative)
[2024-08-23] MEDS: Lactated Ringers 1,000 ML 999 ML IV (07:56)
[2024-08-23] MEDS: Acetaminophen 325 MG TABLET 975 MG PO (07:56)
--- NOTE | 2024-08-23 07:57 | PC.NURSE ---
cultures obtained/sent to lab. IVF administered per provider order. pt currently remains febrile. Tylenol administered for fever - effectiveness pending. pt remains sinus tachycardic on the quality assurance monitor final. denies chest pain/palpitations. VS otherwise remain WNL. no sob/wob noted. respirations remain even/unlabored. plan of care ongoing. call goodwin placed within reach.
[2024-08-23] MEDS: ondansetron HCL 4 MG/2 ML VIAL IVPUSH (07:59)
[2024-08-23] MEDS: Ketorolac Tromethamine 30 MG/ML VIAL IVPUSH (07:59)
[2024-08-23 08:03] VITALS: BP 117/63; PULSE 99; RESP 14; O2SAT 94
[2024-08-23 08:12] LABS: Lactic Acid 1.8 mmol/L (0.5-2.0)
[2024-08-23 08:48] LABS: Erythrocyte Sedimentation Rate 67 MM/HR (0-20)
[2024-08-23 09:06] VITALS: BP 102/59; PULSE 89; RESP 16; TEMP 36.9; O2SAT 94
--- NOTE | 2024-08-23 09:06 | PC.NURSE ---
pt returned from xray at this time. pt aware that UA is still needed at this time. states she does not have to go. will reattempt shortly.
[2024-08-23 09:44] VITALS: BP 104/57; PULSE 74; RESP 16; TEMP 36.9; O2SAT 95
--- NOTE | 2024-08-23 09:45 | PC.NURSE ---
urine obtained/sent to lab.
[2024-08-23 10:01] LABS: Appearance Urine Cloudy; Color Urine Yellow; Glucose Urine UA Negative (Negative); Leukocyte Esterase Urine Moderate (2+) (Negative); Nitrite Urine Negative (Negative); Specific Gravity - Urine 1.015 (1.005-1.025); UMIC TRIGGER UACC YES; Urine Blood Negative (Negative); Urine Ketones Negative (Negative); Urine Protein Negative (Neg-Trace)
[2024-08-23 10:24] LABS: Bacteria Urine 4+ (None Seen); Hyaline Casts Urine 0-2 /LPF (0-2); RBC Urine 0-2 /HPF (0-2); Squamous Epithelial Cell Urine >20 /HPF (0-2); UACC Culture Trigger YES
[2024-08-23 11:08] VITALS: BP 104/57; PULSE 74; RESP 16; TEMP 36.9; O2SAT 95
[2024-08-26 22:19] LABS: A. Phagocytphilium DNA,RT-PCR NOT DETECTED (NOT DETECTED); Babesia Microti DNA, RT-PCR NOT DETECTED (NOT DETECTED); Borrelia Miyamotoi,DNA RT-PCR NOT DETECTED (NOT DETECTED); E.Chaffeensis DNA RT-PCR NOT DETECTED (NOT DETECTED); Lyme(Borrelia ssp)DNA RT-PCR NOT DETECTED (NOT DETECTED)
[2024-08-27 16:14] LABS: Lyme Abs Screen <0.90 index
== END 2024-08-23 11:10 | disposition home or self-care (01) ==
PROVIDERS: Physician Assistant; Emergency Provider Emergency Medicine Emergency Medical Services
DX: J18.9 Pneumonia, unspecified organism (principal); N39.0 Urinary tract infection, site not specified; G43.901 Migraine, unspecified, not intractable, with status migrainosus; R42 Dizziness and giddiness; R50.9 Fever, unspecified; R00.0 Tachycardia, unspecified; R11.2 Nausea with vomiting, unspecified; R53.1 Weakness; Z03.818 Encounter for observation for suspected exposure to other biological agents ruled out; Z79.899 Other long term (current) drug therapy
CPT/HCPCS: 0241U; 36415; 71046; 80053; 81001; 81003; 83605; 84702; 85025; 85652; 86140; 86617; 86618; 87040; 87086; 87468; 87469; 87478; 87484; 87798; 96361; 96374; 96375; 99284; J1885; J2405; J7120

== ENCOUNTER 2024-08-31 20:59 | Emergency (ER) | payer MEDICAID, SELFPAY ==
[2024-08-31 21:25] VITALS: BP 113/64; PULSE 82; RESP 18; TEMP 36.6; O2SAT 99; BMI 39.5
[2024-08-31 21:52] LABS: MANUAL DIFF FLAG NO
[2024-08-31 21:54] LABS: Basophils Percent Auto 0.3 % (0-2); Eosinophils Absolute Auto 0.4 X10*3/uL (0.0-0.4); Eosinophils Percent Auto 3.7 % (0-4); Hematocrit 36.2 % (37.0-47.0); Hemoglobin 12.4 g/dl (12.0-16.0); Imm Gran Pct Auto 1.1 % (0.0-0.4); Lymphocytes Absolute Auto 1.6 X10*3/uL (1.2-4.9); Lymphocytes Percent Auto 16.9 % (20-40); Mean Corpuscular HGB Conc 34.3 g/dl (31.0-35.0); Mean Corpuscular Hemoglobin 28.8 pg (27.0-33.0); Mean Corpuscular Volume 84.2 fL (80.0-98.0); Mean Platelet Volume 9.3 fL (9.4-12.3); Monocytes Absolute Auto 0.7 X10*3/uL (0.1-1.2); Monocytes Percent Auto 7.2 % (2-11); Neutrophils Absolute Auto 6.6 x10*3/uL (2.0-8.3); Neutrophils Percent Auto 70.8 % (45-73); Platelet Count 350 X10*3/uL (160-400); Red Cell Distribution Width 12.9 % (11.0-16.0); White Blood Count 9.4 X10*3/uL (4.8-10.8)
[2024-08-31 22:20] LABS: Alanine Aminotransferase 76 U/L (0-31); Albumin Level 4.2 g/dL (3.5-5.0); Alkaline Phosphatase 62 U/L (39-117); Anion Gap 18 (12-20); Aspartate Amino Transferase 31 U/L (5-31); Bilirubin Total 0.4 mg/dL (0.0-1.0); Blood Urea Nitrogen 13 mg/dL (9-16); Calcium 9.5 mg/dL (8.4-10.2); Carbon Dioxide 21 mmol/L (22-29); Chloride 105 mmol/L (96-108); Creatinine Clr Calc Pharmacy 142.4; Estimated Glomerular Filt Rate > 60; Glucose Random 138 mg/dL (60-115); Potassium 4.1 mmol/L (3.3-5.1); Sodium 140 mmol/L (135-145); Total Protein 7.4 g/dL (6.5-8.0)
[2024-09-01 00:25] LABS: Appearance Urine Turbid; Color Urine Yellow; Glucose Urine UA Negative (Negative); Leukocyte Esterase Urine Negative (Negative); Nitrite Urine Negative (Negative); PH 7.5 (5.0-9.0); Urine Blood Negative (Negative); Urine Ketones Negative (Negative); Urine Protein Negative (Neg-Trace)
[2024-09-01 00:28] LABS: Bacteria Urine Trace (None Seen); Hyaline Casts Urine 0-2 /LPF (0-2); RBC Urine 0-2 /HPF (0-2); WBC Urine 0-5 /HPF (0-5)
--- NOTE | 2024-09-01 01:23 | ECG_ITS ---
Test Reason : dizziness Blood Pressure : / mmHG Vent. Rate : 067 BPM Atrial Rate : 067 BPM P-R Int : 164 ms QRS Dur : 086 ms QT Int : 420 ms P-R-T Axes : 028 013 014 degrees QTc Int : 443 ms Normal sinus rhythm Normal ECG No significant changes when compared with the previous EKG of 19 jul 2017 Referred By: Brigitte Arita Electronically Signed By:ADALBERTO LANE
--- NOTE | 2024-09-01 01:28 | ED_ITS ---
HPI - Dizziness General Chief Complaint: Dizziness Stated Complaint: dizzy/vomiting Time Seen by Provider: 09/01/24 00:23 Source: patient Mode of arrival: ambulatory Limitations: no limitations History of Present Illness ED Provider: Dr. Brigitte Arita HPI Narrative: patient comes to the emergency room complaining of Intermittent room spinning. According to the patient, 2 hours ago, patient had sudden onset of feeling that the room is spinning. Patient states that she vomited, so a little streak of blood in the vomit. Patient states that she recently recovered forearm pneumonia, took antibiotics until yesterday. Patient denies any chest pain or shortness of breath. No ear pain. Patient states that if she turns her head in certain ways, she gets very dizzy. If she is sitting without moving or moving her head, she has no dizziness. Related Data Previous Rx's ?Medication ?Instructions ?Recorded azithromycin 250 mg tablet See Rx Instructions PO .COMPLEX #6 08/07/21 tabs acetaminophen 500 mg tablet 500 mg PO Q6H PRN fever or pain 09/27/22 #20 tabs ibuprofen 600 mg tablet 600 mg PO TID PRN fever or pain 09/27/22 #14 tabs oseltamivir 75 mg capsule (Tamiflu) 75 mg PO BID #10 caps 09/27/22 [id number]-tmojjkmqcjzlz-fnwrudzu 1 tab PO Q4-6H PRN headache #10 08/20/24 50 mg-325 mg-40 mg tablet tabs azithromycin 250 mg tablet See Rx Instructions PO .COMPLEX #6 08/23/24 (Zithromax Z-Amari) tabs cefpodoxime 200 mg tablet 200 mg PO BID #14 tabs 08/23/24 meclizine 25 mg tablet 25 mg PO QID PRN motion sickness 09/01/24 #20 tabs Allergies Allergy/AdvReac Type Severity Reaction Status Date / Time Penicillins Allergy Unknown RASH Verified 08/31/24 21:29 Review of Systems 2 Review of Systems: Constitutional : No Weight loss, No Fever, No Chills, No Night Sweats, No Fatigue, No Malaise ENT/Mouth : No Hearing loss, No Ear Pain, No Nasal Congestion, No Sinus Pain, No Hoarseness, No sore throat, No Rhinorrhea, No Swallowing Difficulty Eyes: No Eye Pain, No Swelling, No Redness, No Foreign Body, No Discharge, No Vision Changes Cardiovascular : No Chest Pain, No SOB, No Dyspnea on Exertion, No Orthopnea, No Edema, No Palpitations Respiratory : No Cough, No Sputum, No Wheezing, No Smoke Exposure, No Dyspnea Gastrointestinal : No Nausea, No Vomiting, No Diarrhea, No Constipation, No abdominal Pain, No Hematochezia, No Melena Genitourinary : no irregular bleeding, No Dysuria, No Urinary Frequency, No Hematuria, No Urinary Incontinence, No Urgency, No Flank Pain, No Urinary Flow Changes, No Hesitancy Musculoskeletal : No joint pain, No Myalgias, No Joint Swelling Skin : No Skin Lesions, No rash Neuro : No Weakness, No Numbness, No Paresthesias, No Loss of Consciousness, No headache, complaining of room spinning with certain head movements Psych : No Anxiety/Panic, No Depression, No SI/HI/AH/VH, No Social Issues, Heme/Lymph: No Bruising, No Bleeding,No Lymphadenopathy Endocrine : No Polyuria, No Polydipsia, No Temperature Intolerance PMFSH Past Medical History Medical History (Reviewed 09/01/24 @ 01:57 EDT by Brigitte Arita MD) delivery delivered Surgical History H/O: hysterectomy Social History Social History (System 11/17/23 @ 14:55 by Marylou Baird) Alcohol intake: unknown Advance Directives: No Advance Directives Information Provided: No Do you have a plan to hurt others: No Plan Physical Exam 2 Vital Signs: Vital Signs: Last Vital Signs Temp 97.9 F 08/31/24 21:25 Pulse 82 08/31/24 21:25 Resp 18 08/31/24 21:25 BP 113/64 08/31/24 21:25 Pulse Ox 99 08/31/24 21:25 O2 Del Method Room Air 08/31/24 21:25 BMI result Body Mass Index 39.5 Const: Other: Appearance: Alert. Oriented X3. No acute distress. Eyes: Pupils equal, round and reactive to light. no nystagmus ENT: Pharynx normal. Neck: Normal inspection. Neck supple. No lymph nodes noted. No crepitus CVS: Normal heart rate and rhythm. Pulses normal. Normal S1 and S2 Respiratory: No respiratory distress. Breath sounds normal. No Wheezing. No rales Abdomen: Soft and nontender. No rigidity. No distention. Skin: Skin warm and dry. Normal skin color. Normal skin turgor. Extremities: No lower extremity edema. No Lacerations. No Rash Neuro: Oriented X 3. No motor deficit. No sensory deficit. Moving all extremities. No slurred speech. CN 2 through 12 grossly intact Psych: calm, cooperative, normal affect Course Course Course Narrative: patient receiving p.o. diazepam and meclizine. We will re-evaluate symptoms after the medication. Medical Decision Making Medical Decision Making [facility] Narrative: My interpretation of labs: Normal hematology, normal chemistry, troponin negative, beta hCG negative. - patient used took the medication p.o.. Symptomatic improvement pending. If symptoms do not improve, patient may need imaging. - Sign-out given to my colleague Dr. Valle Differential Diagnosis Differential Diagnoses: The differential diagnosis associated with the presentation includes ( vertigo) Lab Data [facility] Lab Attestation statement: I reviewed the patient's lab results. 08/31/24 21:45 08/31/24 21:45 Labs: Lab Results 08/31/24 09/01/24 Range/Units 21:45 00:18 WBC 9.4 (4.8-10.8) X10*3/uL RBC 4.30 (4.20-5.50) X10*6/uL Hgb 12.4 (12.0-16.0) g/dl Hct 36.2 L (37.0-47.0) % MCV 84.2 (80.0-98.0) fL MCH 28.8 (27.0-33.0) pg MCHC 34.3 (31.0-35.0) g/dl RDW 12.9 (11.0-16.0) % Plt Count 350 D (160-400) X10*3/uL MPV 9.3 L (9.4-12.3) fL Immature Gran % (Auto) 1.1 H (0.0-0.4) % Neut % (Auto) 70.8 (45-73) % Lymph % (Auto) 16.9 L (20-40) % [place] % (Auto) 7.2 (2-11) % Eos % (Auto) 3.7 (0-4) % Baso % (Auto) 0.3 (0-2) % Lymph # (Auto) 1.6 (1.2-4.9) X10*3/uL [place] # (Auto) 0.7 (0.1-1.2) X10*3/uL Eos # (Auto) 0.4 (0.0-0.4) X10*3/uL Baso # (Auto) 0.0 (0.0-0.2) X10*3/uL Abs Immat Gran (auto) 0.10 H (0.00-0.03) X10*3/uL Absolute Neuts (auto) 6.6 (2.0-8.3) x10*3/uL Absolute Nucleated RBC 0.000 (0.0-0.012) X10*3/uL Nucleated RBC % (auto) 0.0 (0.0-0.2) /100WBC Sodium 140 (135-145) mmol/L Potassium 4.1 (3.3-5.1) mmol/L Chloride 105 (96-108) mmol/L Carbon Dioxide 21 L (22-29) mmol/L Anion Gap 18 (12-20) BUN 13 (9-16) mg/dL Creatinine 0.67 (0.5-1.4) mg/dL Estim Creat Clear Calc 142.4 Estimated GFR > 60 Random Glucose 138 H (60-115) mg/dL Calcium 9.5 (8.4-10.2) mg/dL Total Bilirubin 0.4 (0.0-1.0) mg/dL AST 31 (5-31) U/L ALT 76 H (0-31) U/L Alkaline Phosphatase 62 (39-117) U/L Total Protein 7.4 (6.5-8.0) g/dL Albumin 4.2 (3.5-5.0) g/dL Urine Color Yellow Urine Appearance Turbid Urine pH 7.5 (5.0-9.0) Ur Specific [place] 1.020 (1.005-1.025) Urine Protein Negative (Neg-Trace) mg/dL Urine Glucose (UA) Negative (Negative) mg/dL Urine Ketones Negative (Negative) mg/dL Urine Blood Negative (Negative) Urine Nitrite Negative (Negative) Ur Leukocyte Esterase Negative (Negative) Urine RBC 0-2 (0-2) /HPF Urine WBC 0-5 (0-5) /HPF Ur Squamous Epith Cells 11-20 (0-2) /HPF Urine Bacteria Trace (None Seen) Hyaline Casts 0-2 (0-2) /LPF Discharge Plan Discharge Clinical Impression: Vertigo Patient Disposition: Still a Patient Instructions: Vertigo (ED) Additional Instructions: Please follow-up with your primary care physician tomorrow. If you have any worsening or new symptoms, please return to the emergency room or call 911 Prescriptions: New meclizine 25 mg tablet 25 mg PO QID PRN (Reason: motion sickness) Qty: 20 0RF No Action azithromycin 250 mg tablet See Rx Instructions .ROUTE .COMPLEX Qty: 6 0RF Rx Instructions: take 500 mg today (day 1), then 250 mg for 4 days (days 2-5) oseltamivir [Tamiflu] 75 mg capsule 75 mg PO BID Qty: 10 0RF ibuprofen 600 mg tablet 600 mg PO TID PRN (Reason: fever or pain) Qty: 14 0RF acetaminophen 500 mg tablet 500 mg PO Q6H PRN (Reason: fever or pain) Qty: 20 0RF rvambiauuz-iwylqfzkmglbm-uicf 50-325-40 mg tablet 1 tab PO Q4-6H PRN (Reason: headache) Qty: 10 0RF azithromycin [Zithromax Z-Amari] 250 mg tablet See Rx Instructions .ROUTE .COMPLEX Qty: 6 0RF Rx Instructions: take 500 mg today (day 1), then 250 mg for 4 days (days 2-5) cefpodoxime 200 mg tablet 200 mg PO BID Qty: 14 0RF Rx Instructions: must administer with a meal/food Print Language: [place]
[2024-09-01] MEDS: diazePAM 2 MG TABLET PO (01:45)
[2024-09-01] MEDS: Meclizine HCl 25 MG TABLET 50 MG PO (01:45)
[2024-09-01 01:46] LABS: Troponin-I High Sensitivity < 2.7 ng/L (<3.5-17.0)
[2024-09-01 01:52] LABS: HCG Quantitative < 2 mIU/mL
[2024-09-01 02:24] VITALS: BP 96/51; PULSE 69; RESP 18; TEMP 36.5; O2SAT 96
--- NOTE | 2024-09-01 02:52 | PC.NURSE ---
MD aware of BP
[2024-09-01 02:53] VITALS: BP 96/51; PULSE 69; RESP 18; TEMP 36.5; O2SAT 96
== END 2024-09-01 02:53 | disposition home or self-care (01) ==
PROVIDERS: Emergency Provider Emergency Medicine; PCP Family Medicine
DX: R42 Dizziness and giddiness (principal)
CPT/HCPCS: 36415; 80053; 81001; 84484; 84702; 85025; 93005; 99283; 99284

== ENCOUNTER → 2024-09-01 01:23 | Outpatient (BNV) | payer MEDICAID, SELFPAY | PROVIDERS: Emergency Provider Emergency Medicine; PCP Family Medicine; Visit Provider Internal Medicine | DX: R11.10 Vomiting, unspecified (principal) | CPT/HCPCS: 93010 ==

== ENCOUNTER 2025-01-23 00:38 | Emergency (ER) | payer MEDICAID, SELFPAY ==
--- NOTE | 2025-01-23 | ECG_ITS ---
Test Reason : CP Blood Pressure : */* mmHG Vent. Rate : 68 BPM Atrial Rate : 68 BPM P-R Int : 174 ms QRS Dur : 88 ms QT Int : 404 ms P-R-T Axes : 44 7 16 degrees QTcB Int : 429 ms Normal sinus rhythm Normal ECG When compared with ECG of 01-Sep-2024 02:24, No significant change was found Referred By: Generic ED Physician Electronically Signed By: TERESE KRAMER MD
--- NOTE | ~2025-01-23 | XR_ITS ---
CLINICAL HISTORY: cp 1 view chest x-ray Comparison: CR/CT/SR - XR CHEST 2V - 08/23/24 09:05 EDT Findings: No consolidation or effusion. Normal size heart. No acute fracture. IMPRESSION: 1. No acute findings. This document has been electronically signed by: Yung De La O MD on 01/23/2025 01:35:27
[2025-01-23 00:45] VITALS: BP 118/67; PULSE 85; RESP 18; TEMP 36.6; O2SAT 96; BMI 40.5
[2025-01-23 01:03] LABS: Basophils Percent Auto 0.3 % (0-2); Eosinophils Absolute Auto 0.7 X10*3/uL (0.0-0.4); Eosinophils Percent Auto 7.3 % (0-4); Hematocrit 37.1 % (37.0-47.0); Hemoglobin 12.7 g/dl (12.0-16.0); Imm Gran Abs Auto 0.03 X10*3/uL (0.00-0.03); Imm Gran Pct Auto 0.3 % (0.0-0.4); Lymphocytes Percent Auto 22.7 % (20-40); MANUAL DIFF FLAG NO; Mean Corpuscular HGB Conc 34.2 g/dl (31.0-35.0); Mean Corpuscular Hemoglobin 28.6 pg (27.0-33.0); Mean Corpuscular Volume 83.6 fL (80.0-98.0); Mean Platelet Volume 9.4 fL (9.4-12.3); Monocytes Absolute Auto 0.5 X10*3/uL (0.1-1.2); Monocytes Percent Auto 5.8 % (2-11); Neutrophils Absolute Auto 5.7 x10*3/uL (2.0-8.3); Neutrophils Percent Auto 63.6 % (45-73); Platelet Count 256 X10*3/uL (160-400); Red Blood Count 4.44 X10*6/uL (4.20-5.50); Red Cell Distribution Width 12.5 % (11.0-16.0)
[2025-01-23 01:17] LABS: Alanine Aminotransferase 45 U/L (0-31); Albumin Level 4.1 g/dL (3.5-5.0); Alkaline Phosphatase 66 U/L (39-117); Anion Gap 11 (12-20); Aspartate Amino Transferase 25 U/L (5-31); Bilirubin Total 0.8 mg/dL (0.0-1.0); Blood Urea Nitrogen 14 mg/dL (9-16); Calcium 8.9 mg/dL (8.4-10.2); Carbon Dioxide 27 mmol/L (22-29); Chloride 104 mmol/L (96-108); Creatinine Clr Calc Pharmacy 135.3; Estimated Glomerular Filt Rate > 60; Glucose Random 119 mg/dL (60-115); Potassium 3.9 mmol/L (3.3-5.1); Sodium 138 mmol/L (135-145); Total Protein 7.1 g/dL (6.5-8.0)
[2025-01-23 01:23] LABS: Troponin-I High Sensitivity < 2.7 ng/L (<3.5-17.0)
[2025-01-23 01:39] LABS: Influenza A PCR NEGATIVE (Negative); Influenza B PCR NEGATIVE (Negative); Resp Syncy Virus RNA Qual PCR NEGATIVE (Negative); SARS COV2 PCR INHOUSE NEGATIVE (Negative)
[2025-01-23 02:02] LABS: HCG Quantitative < 2 mIU/mL
--- NOTE | 2025-01-23 02:14 | ED_ITS ---
HPI - Chest Pain General Chief Complaint: Chest Pain Stated Complaint: chest pain, headache, lower back pain Time Seen by Provider: 01/23/25 01:34 Source: patient Limitations: language barrier History of Present Illness ED Provider: Cindy Sam PA-C HPI narrative: 39-year-old female presents with viral related symptoms that began today. Associated generalized body aches, low back pain, dysuria, headache, dry cough and congestion. Patient had 1 episode of vomiting. Denies sick contacts with same symptoms, no fevers. Related Data Previous Rx's ?Medication ?Instructions ?Recorded azithromycin 250 mg tablet See Rx Instructions PO .COMPLEX #6 08/07/21 tabs acetaminophen 500 mg tablet 500 mg PO Q6H PRN fever or pain 09/27/22 #20 tabs ibuprofen 600 mg tablet 600 mg PO TID PRN fever or pain 09/27/22 #14 tabs oseltamivir 75 mg capsule (Tamiflu) 75 mg PO BID #10 caps 09/27/22 blglskiukm-sojmkjnjpzwyr-hwsmpsxh 1 tab PO Q4-6H PRN headache #10 08/20/24 50 mg-325 mg-40 mg tablet tabs azithromycin 250 mg tablet See Rx Instructions PO .COMPLEX #6 08/23/24 (Zithromax Z-Amari) tabs cefpodoxime 200 mg tablet 200 mg PO BID #14 tabs 08/23/24 meclizine 25 mg tablet 25 mg PO QID PRN motion sickness 09/01/24 #20 tabs albuterol sulfate 90 mcg/actuation 2 puff inhalation Q4-6H PRN 01/23/25 aerosol inhaler bronchospasm #6.7 grams phenazopyridine 200 mg tablet 200 mg PO TID PRN bladder pain #10 01/23/25 (Pyridium) tabs Allergies Allergy/AdvReac Type Severity Reaction Status Date / Time Penicillins Allergy Unknown RASH Verified 01/23/25 01:01 Review of Systems 2 Review of Systems: Yes all other systems are reviewed and are negative Constitutional: Constitutional: Denies fatigue, Denies fever(s) and Reports malaise ENT: Reports nasal congestion Cardiovascular: Cardiovascular: Denies chest pain and Denies dyspnea Respiratory: Respiratory: Reports cough, Denies dyspnea and Denies wheezing Gastrointestinal: Gastrointestinal: Denies abdominal pain, Denies diarrhea, Denies nausea and Reports vomiting Genitourinary: Genitourinary: Reports dysuria Musculoskeletal: Musculoskeletal: Reports myalgias Endocrine: Endocrine: Denies fatigue Allergic/Immunologic: Allergic/Immunologic: Denies wheezing PMFSH Past Medical History Attestation statement: The following information was validated with the patient. Medical History (Reviewed 09/01/24 @ 01:57 EDT by Brigitte Arita MD) delivery delivered Surgical History H/O: hysterectomy Social History Social History (System 11/17/23 @ 14:55 by Marylou Baird) Alcohol intake: never Advance Directives: No Advance Directives Information Provided: No Do you have a plan to hurt others: No Plan Physical Exam 2 Vital Signs: Vital Signs: Last Vital Signs Temp 97.5 F 01/23/25 02:25 Pulse 75 01/23/25 02:25 Resp 16 01/23/25 02:25 BP 111/44 L 01/23/25 02:25 Pulse Ox 97 01/23/25 02:25 O2 Del Method Room Air 01/23/25 02:25 BMI result Body Mass Index 40.5 Const: Other: Alert Orientation/consciousness: patient oriented x3 Resp: Other: nonlabored respirations, active bronchospasm cough, no wheezing Cardio: Other: normal peripheral perfusion Skin: Other: warm dry no rash Neuro: General: patient oriented x3, gait normal, no focal motor deficits and CN's II-XI intact bilaterally Psych: Other: cooperative Medical Decision Making Medical Decision Making MDM Narrative: 39-year-old female presents with viral related symptoms that began today. Associated generalized body aches, low back pain, dysuria, headache, dry cough and congestion. Patient had 1 episode of vomiting. Denies sick contacts with same symptoms, no fevers. no chronic issues History: Per patient I have considered the following differential diagnoses: Viral syndrome, bronchitis, pneumonia, UTI, ACS Plan: Patient here with numerous viral related complaints, screening labs including a viral panel and a chest x-ray were obtained from triage. No acute findings. Patient made a comment about chest discomfort as well, ACS was considered, cardiac enzyme and EKG were obtained. This is not ACS, this is part of her constellation of viral related symptoms. In regard to her dysuria, her urine is not infected. I have independently reviewed the following tests: Labs: no leukocytosis, not anemic, no electrolyte abnormality, trop negative, not , viral panel negative, urine not infected EKG: Normal sinus rhythm, rate of 68, no ischemic changes no ectopy Chest x-ray:Findings: No consolidation or effusion. Normal size heart. No acute fracture. IMPRESSION: 1. No acute findings. Lab Data 01/23/25 00:57 01/23/25 00:57 Labs: Lab Results 01/23/25 01/23/25 Range/Units 00:57 02:27 WBC 9.0 (4.8-10.8) X10*3/uL RBC 4.44 (4.20-5.50) X10*6/uL Hgb 12.7 (12.0-16.0) g/dl Hct 37.1 (37.0-47.0) % MCV 83.6 (80.0-98.0) fL MCH 28.6 (27.0-33.0) pg MCHC 34.2 (31.0-35.0) g/dl RDW 12.5 (11.0-16.0) % Plt Count 256 D (160-400) X10*3/uL MPV 9.4 (9.4-12.3) fL Immature Gran % (Auto) 0.3 (0.0-0.4) % Neut % (Auto) 63.6 (45-73) % Lymph % (Auto) 22.7 (20-40) % [place] % (Auto) 5.8 (2-11) % Eos % (Auto) 7.3 H (0-4) % Baso % (Auto) 0.3 (0-2) % Lymph # (Auto) 2.0 (1.2-4.9) X10*3/uL [place] # (Auto) 0.5 (0.1-1.2) X10*3/uL Eos # (Auto) 0.7 H (0.0-0.4) X10*3/uL Baso # (Auto) 0.0 (0.0-0.2) X10*3/uL Abs Immat Gran (auto) 0.03 (0.00-0.03) X10*3/uL Absolute Neuts (auto) 5.7 (2.0-8.3) x10*3/uL Absolute Nucleated RBC 0.000 (0.0-0.012) X10*3/uL Nucleated RBC % (auto) 0.0 (0.0-0.2) /100WBC Sodium 138 (135-145) mmol/L Potassium 3.9 (3.3-5.1) mmol/L Chloride 104 (96-108) mmol/L Carbon Dioxide 27 (22-29) mmol/L Anion Gap 11 L (12-20) BUN 14 (9-16) mg/dL Creatinine 0.69 (0.5-1.4) mg/dL Estim Creat Clear Calc 135.3 Estimated GFR > 60 Random Glucose 119 H (60-115) mg/dL Calcium 8.9 D (8.4-10.2) mg/dL Total Bilirubin 0.8 (0.0-1.0) mg/dL AST 25 (5-31) U/L ALT 45 H (0-31) U/L Alkaline Phosphatase 66 (39-117) U/L Troponin I High Sens < 2.7 (<3.5-17.0) ng/L Total Protein 7.1 (6.5-8.0) g/dL Albumin 4.1 (3.5-5.0) g/dL Beta HCG, Quant < 2 mIU/mL Urine Color Yellow Urine Appearance Cloudy Urine pH 6.0 (5.0-9.0) Ur Specific [place] 1.020 (1.005-1.025) Urine Protein Negative (Neg-Trace) mg/dL Urine Glucose (UA) Negative (Negative) mg/dL Urine Ketones Trace (Negative) mg/dL Urine Blood Negative (Negative) Urine Nitrite Negative (Negative) Ur Leukocyte Esterase Moderate (2+) H (Negative) Urine RBC 0-2 (0-2) /HPF Urine WBC >50 (0-5) /HPF Ur Squamous Epith Cells 6-10 (0-2) /HPF Urine Bacteria 1+ (None Seen) Hyaline Casts 0-2 (0-2) /LPF Urine Test NEGATIVE (NEGATIVE) Influenza Type A (PCR) NEGATIVE (Negative) Influenza Type B (PCR) NEGATIVE (Negative) RSV RNA Qual (PCR) NEGATIVE (Negative) SARS-CoV-2 RNA (RT-PCR) NEGATIVE (Negative) Discharge Plan Discharge Clinical Impression: Acute viral syndrome, Dysuria, Acute bronchospasm Patient Disposition: Home, Self-Care Instructions: Viral Syndrome (ED), Dysuria (ED), Bronchospasm (ED) Additional Instructions: all of your screening labs including a cardiac enzymes were normal. Your urine is not infected. The viral panel was negative, you were screened for influenza RSV and COVID. There were no concerning changes on the EKG in the chest x-ray is clear. You have another respiratory virus that has been circulating within the community, we can not possibly test for every virus. Use the inhaler for your bronchospasm type cough. In regard to your urinary discomfort, use the Pyridium for bladder pain. This medication we will cause your urine to become bright orange, it will resolve. Follow up with your primary care provider as needed. Prescriptions: New albuterol sulfate 90 mcg/actuation HFA aerosol inhaler 2 puff inhalation Q4-6H PRN (Reason: bronchospasm) Qty: 6.7 0RF phenazopyridine [Pyridium] 200 mg tablet 200 mg PO TID PRN (Reason: bladder pain) Qty: 10 0RF No Action azithromycin 250 mg tablet See Rx Instructions .ROUTE .COMPLEX Qty: 6 0RF Rx Instructions: take 500 mg today (day 1), then 250 mg for 4 days (days 2-5) oseltamivir [Tamiflu] 75 mg capsule 75 mg PO BID Qty: 10 0RF ibuprofen 600 mg tablet 600 mg PO TID PRN (Reason: fever or pain) Qty: 14 0RF acetaminophen 500 mg tablet 500 mg PO Q6H PRN (Reason: fever or pain) Qty: 20 0RF hkndxoboyw-wrketmzunekxa-zgyx 50-325-40 mg tablet 1 tab PO Q4-6H PRN (Reason: headache) Qty: 10 0RF azithromycin [Zithromax Z-Amari] 250 mg tablet See Rx Instructions .ROUTE .COMPLEX Qty: 6 0RF Rx Instructions: take 500 mg today (day 1), then 250 mg for 4 days (days 2-5) cefpodoxime 200 mg tablet 200 mg PO BID Qty: 14 0RF Rx Instructions: must administer with a meal/food meclizine 25 mg tablet 25 mg PO QID PRN (Reason: motion sickness) Qty: 20 0RF Print Language: Hebrew
[2025-01-23 02:25] VITALS: BP 111/44; PULSE 75; RESP 16; TEMP 36.4; O2SAT 97
[2025-01-23 02:33] LABS: Appearance Urine Cloudy; Color Urine Yellow; Glucose Urine UA Negative (Negative); Leukocyte Esterase Urine Moderate (2+) (Negative); Nitrite Urine Negative (Negative); UMIC TRIGGER UACC YES; Urine Blood Negative (Negative); Urine Ketones Trace mg/dL (Negative); Urine Protein Negative (Neg-Trace)
[2025-01-23 02:35] LABS: UPreg QC Valid YES; Urine Pregnancy NEGATIVE (NEGATIVE)
[2025-01-23 02:39] LABS: Bacteria Urine 1+ (None Seen); Hyaline Casts Urine 0-2 /LPF (0-2); RBC Urine 0-2 /HPF (0-2); UACC Culture Trigger YES; WBC Urine >50 /HPF (0-5)
[2025-01-23 03:15] VITALS: BP 111/44; PULSE 75; RESP 16; TEMP 36.4; O2SAT 97
== END 2025-01-23 03:15 | disposition home or self-care (01) ==
PROVIDERS: Physician Assistant Medical; Emergency Provider Emergency Medicine; PCP Family Medicine
DX: B34.9 Viral infection, unspecified (principal); R30.0 Dysuria; J98.01 Acute bronchospasm; M54.50 Low back pain, unspecified; R05.9 Cough, unspecified; Z03.818 Encounter for observation for suspected exposure to other biological agents ruled out
CPT/HCPCS: 0241U; 71045; 80053; 81001; 81025; 84484; 84702; 85025; 87086; 93005; 99283; 99284

== ENCOUNTER → 2025-01-23 00:44 | Outpatient (BNV) | payer MEDICAID, SELFPAY | PROVIDERS: Emergency Provider Emergency Medicine; PCP Family Medicine; Visit Provider Internal Medicine Cardiovascular Disease | DX: R07.9 Chest pain, unspecified (principal) | CPT/HCPCS: 93010 ==

== ENCOUNTER → 2025-01-23 00:57 | Outpatient (BNV) | payer MEDICAID, SELFPAY | PROVIDERS: Emergency Provider Emergency Medicine; PCP Family Medicine; Visit Provider Radiology Diagnostic Radiology | DX: R07.9 Chest pain, unspecified (principal) | CPT/HCPCS: 71045 ==

== ENCOUNTER 2025-09-11 11:33 | Outpatient (REF) | payer MEDICAID, SELFPAY ==
[2025-09-11 13:05] LABS: MANUAL DIFF FLAG NO
[2025-09-11 13:19] LABS: Hematocrit 38.2 % (37.0-47.0); Hemoglobin 12.6 g/dl (12.0-16.0); Imm Gran Abs Auto 0.05 X10*3/uL (0.00-0.03); Imm Gran Pct Auto 0.7 % (0.0-0.4); Lymphocytes Absolute Auto 1.7 X10*3/uL (1.2-4.9); Mean Corpuscular HGB Conc 33.0 g/dl (31.0-35.0); Mean Corpuscular Hemoglobin 28.1 pg (27.0-33.0); Mean Corpuscular Volume 85.1 fL (80.0-98.0); NRBC Abs Auto 0.000 X10*3/uL (0.0-0.012); NRBC Pct Auto 0.0 /100WBC (0.0-0.2); Platelet Count 290 X10*3/uL (160-400); Red Blood Count 4.49 X10*6/uL (4.20-5.50); White Blood Count 7.6 X10*3/uL (4.8-10.8)
[2025-09-11 14:22] LABS: Alanine Aminotransferase 50 U/L (0-31); Albumin Level 4.6 g/dL (3.5-5.0); Alkaline Phosphatase 76 U/L (39-117); Anion Gap 11 (12-20); Aspartate Amino Transferase 32 U/L (5-31); Blood Urea Nitrogen 14 mg/dL (9-16); Calcium 9.7 mg/dL (8.4-10.2); Carbon Dioxide 29 mmol/L (22-29); Chloride 103 mmol/L (96-108); Cholesterol 181 mg/dL (<200); Estimated Glomerular Filt Rate > 60; HDL Cholesterol 43 mg/dL (>40); Iron 83 mcg/dL (30-160); Percent Iron Saturation 31 % (15-50); Potassium 4.1 mmol/L (3.3-5.1); Sodium 139 mmol/L (135-145); Total Iron Binding Capacity 270 mcg/dL (228-428); Total Protein 7.7 g/dL (6.5-8.0); Triglycerides 120 mg/dL (<150); Unsaturated Iron Binding 187 ug/dL
[2025-09-11 14:27] LABS: Folate 9.2 ng/mL (> or = 4.0); Vitamin B12 835 pg/mL (200-900)
[2025-09-11 14:42] LABS: Ferritin 221 ng/mL (10-250)
[2025-09-12 03:42] LABS: Syphilis Screen Nonreactive (Nonreactive)
[2025-09-12 03:56] LABS: HIV Num 1 0.07 S/CO (0.00-0.99); ~HepC Num1 0.09 S/CO (0.00-0.79); ~Hepatitis C Antibody Nonreactive (Nonreactive)
== END 2025-09-11 11:34 | disposition home or self-care (01) ==
LOC: HO.HHCL 11:33
PROVIDERS: PCP Family Medicine; Visit Provider Family Medicine
DX: Z12.4 Encounter for screening for malignant neoplasm of cervix (principal); E66.812 Obesity, class 2; Z68.39 Body mass index [BMI] 39.0-39.9, adult; Z86.2 Personal history of diseases of the blood and blood-forming organs and certain disorders involving the immune mechanism; R73.9 Hyperglycemia, unspecified; E55.9 Vitamin D deficiency, unspecified; Z11.4 Encounter for screening for human immunodeficiency virus [HIV]; Z11.51 Encounter for screening for human papillomavirus (HPV)
CPT/HCPCS: 36415; 80048; 80061; 80076; 82306; 82607; 82728; 82746; 83036; 83540; 84443; 85025; 86780; 86803; 87389; 87626; 88175

== ENCOUNTER 2025-10-16 10:14 | Emergency (ER) | payer MEDICAID, SELFPAY ==
[2025-10-16 10:24] VITALS: BP 105/60; PULSE 83; RESP 18; TEMP 36.3; O2SAT 97; BMI 37.0
--- NOTE | 2025-10-16 10:24 | ED.URI ---
HPI - URI/Sore Throat General Chief Complaint: General Medical Stated Complaint: body aches, fever Time Seen by Provider: 10/16/25 12:35 Source: patient, RN notes reviewed and old records reviewed Mode of arrival: ambulatory Limitations: no limitations History of Present Illness ED Provider: PAULA Lea HPI Narrative: 40-year-old female with medical history of anemia presents to the ED due to body aches, fatigue, intermittent nausea, and headache that started yesterday afternoon while at rest, with an episode of SOB while walking around this morning, no shortness of breath at rest or with deep inspiration. patient denies sick contacts however does have school age children. Patient has not taken any OTC medication for pain management. Denies chest pain, visual changes, abdominal pain, vomiting, black/tarry stool, diarrhea, urinary symptoms, cough, sore throat, nasal congestion Related Data Home Medications ?Medication ?Instructions ?Recorded ?Confirmed lidocaine 5 % topical patch 1 patch topical DAILY 10/14/25 naproxen 500 mg tablet 500 mg PO BID 10/14/25 Previous Rx's ?Medication ?Instructions ?Recorded azithromycin 250 mg tablet See Rx Instructions PO .COMPLEX #6 08/07/21 tabs acetaminophen 500 mg tablet 500 mg PO Q6H PRN fever or pain 09/27/22 #20 tabs ibuprofen 600 mg tablet 600 mg PO TID PRN fever or pain 09/27/22 #14 tabs oseltamivir 75 mg capsule (Tamiflu) 75 mg PO BID #10 caps 09/27/22 fjyncwepfv-wqvfhitgxxldr-bpodwqms 1 tab PO Q4-6H PRN headache #10 08/20/24 50 mg-325 mg-40 mg tablet tabs azithromycin 250 mg tablet See Rx Instructions PO .COMPLEX #6 08/23/24 (Zithromax Z-Amari) tabs cefpodoxime 200 mg tablet 200 mg PO BID #14 tabs 08/23/24 meclizine 25 mg tablet 25 mg PO QID PRN motion sickness 09/01/24 #20 tabs albuterol sulfate 90 mcg/actuation 2 puff inhalation Q4-6H PRN 01/23/25 aerosol inhaler bronchospasm #6.7 grams phenazopyridine 200 mg tablet 200 mg PO TID PRN bladder pain #10 01/23/25 (Pyridium) tabs Allergies Allergy/AdvReac Type Severity Reaction Status Date / Time Penicillins Allergy Unknown RASH Verified 10/16/25 10:26 Review of Systems Review of Systems: Yes all other systems are reviewed and are negative FORMERLY [facility], [facility] Past Medical History Source: old records reviewed and nursing notes reviewed Medical History Snoring Vitamin D deficiency Anemia Daytime somnolence delivery delivered Family History Family History Father Depression Diabetes mellitus Maternal Grandmother Cancer Social History Social History Alcohol intake: never Smoked in Last 30 Days: No Use of substances other than those prescribed or required for medical reasons: No Advance Directives: No Advance Directives Information Provided: Yes Physical Exam Vital Signs: Vital Signs: Last Vital Signs Temp 98.0 F 10/16/25 12:37 Pulse 65 10/16/25 13:59 Resp 14 10/16/25 13:59 BP 105/63 10/16/25 13:59 Pulse Ox 98 10/16/25 13:59 O2 Del Method Room Air 10/16/25 13:59 BMI result Body Mass Index 37.0 GENERAL APPEARANCE: ?AxOx4, generally well-appearing, non toxic, no acute distress. HEENT: ?NC, AT. MMM. EOMI, no nystagmus, pupils reactive to accommodation and consensual light reflex, clear conjunctiva, oropharynx clear. NECK: ?Supple without lymphadenopathy.? No stiffness or restricted ROM. TTP of bilateral cervical paraspinal muscles without midline tenderness, no bony step-offs palpated HEART:? Normal rate and regular rhythm, normal S1/S2, no m/r/g LUNGS:? CTAB, moving air well. No crackles or wheezes are heard. ABDOMEN: ?Soft, nontender, nondistended BACK: No CVAT, no obvious deformity. EXTREMITIES: ?Without cyanosis, clubbing or edema. NEUROLOGICAL: ?Grossly nonfocal. Alert and oriented, moving all 4 extremities. Observed to ambulate with normal gait. Skin: ?Warm and dry without any rash. NIH Stroke Scale Internal: Initial- Upon Arrival Level of Consciousness: Alert Level of Consciousness Questions: Answers both questions correctly Level of Consciousness Commands: Performs both tasks correctly Best Gaze: Normal Visual: No visual loss Facial Palsy: Normal Motor Arm (Right): No drift Motor Arm (Left): No drift Motor Leg (Right): No drift Motor Leg (Left): No drift Limb Ataxia: Absent Sensory: Normal Best Language: No aphasia Dysarthia: Normal Extinction and Inattention: No abnormality Score: 0 Course Course Course Narrative: This is an RME: Additional HPI, ROS, PE not included below will be deferred to primary provider. RME assessment and note performed by: Cristina Buck PA-C This is a [id number]-female, with a fatty liver, who presents to the ER with a complaint of body aches, headaches, and subjective fevers since yesterday. Endorsing nausea. No sick contacts. No CP or SOB. Plan: Labs, viral swabs Medications Administered Discontinued Medications Generic Name Dose Route Start Last Admin Trade Name Freq PRN Reason Stop Dose Admin Diphenhydramine HCl 25 mg 10/16/25 14:54 10/16/25 15:24 Diphenhydramine Hcl 50 Mg/Ml Vial IVPUSH 10/16/25 14:55 25 mg ONCE ONE Administration Lactated Ringer's 1,000 mls @ 999 mls/hr 10/16/25 13:33 10/16/25 15:17 Lr IV 10/16/25 14:33 Infused .Q1H1M ONE Infusion Acetaminophen 1,000 mg in 100 mls @ 400 mls/hr 10/16/25 13:33 10/16/25 14:40 Ofirmev IV 10/16/25 13:47 Infused ONCE ONE Infusion Ibuprofen 400 mg 10/16/25 13:33 10/16/25 13:57 Ibuprofen 400 Mg Tablet PO 10/16/25 13:34 400 mg ONCE ONE Administration Metoclopramide HCl 10 mg 10/16/25 14:54 10/16/25 15:24 Metoclopramide Hcl 10 Mg/2 Ml Vial IVPUSH 10/16/25 14:55 10 mg ONCE ONE Administration Medical Decision Making Medical Decision Making MDM Narrative: 40-year-old female with medical history of anemia presents to the ED due to body aches, fatigue, intermittent nausea, and headache that started yesterday afternoon while at rest, with an episode of SOB while walking around this morning, no shortness of breath at rest or with deep inspiration. patient denies sick contacts however does have school age children. VS on initial observation - BP 105/60, pulse rate of 83, respiratory rate of 18, afebrile with oral temp of 97.3?, O2 saturation 97% on room air. on physical exam patient is well-appearing, nontoxic appearing in no acute distress, HEENT exam reveals EOMI, no nystagmus, TTP of bilateral cervical paraspinal muscles without midline spinal tenderness or bony step-offs palpated,, lungs clear to auscultation bilaterally, cardiac exam reveals normal rate and rhythm without murmurs/rubs/gallops, lower extremities without edema, neurological exam grossly nonfocal, with NIHSS of 0 Labs without leukocytosis/ leukopenia, no evidence of anemia, no electrolyte abnormality, mild transaminitis with an AST of 32, ALT of 58 Viral serology negative Patient with 1 day of body aches, fatigue, intermittent nausea, and headache starting at the cervical paraspinal muscles and extending over the low occipital head with photophobia, no double vision, or blurry vision Without injury, trauma, headache started while patient was at rest, and is associated with nausea and photophobia, no meningeal signs. Patient complains of an episode of shortness of breath while walking around earlier today however PERC and WELLS score of 0, without tachycardia, tachypnea or hypoxia, no pain with deep inspiration- less likely PE. patient's headache has improved with IV fluids, 975 p.o. Tylenol, 400 mg ibuprofen, 10 mg Reglan, 25 mg of Benadryl but still has some photophobia. I considered CT imaging however patient's symptoms have resolved after medication, without focal neurological deficits, and no injury, no indication for CT imaging. patient's symptoms most consistent with a viral illness versus migraine headache. I counseled patient to treat pain with 500 mg of Tylenol, 400 mg of ibuprofen every 6 hours, and to follow up with her primary care doctor to ensure resolution of her symptoms. Patient feels well enough to go home for self care and is in agreement with the plan. Differential Diagnosis Differential Diagnoses: The differential diagnosis associated with the presentation includes Migraine headache Viral illness COVID Flu RSV Admission/Observation Consideration of admission/observation: Escalation of care including admission/observation considered Lab Data MDM Lab Attestation statement: I reviewed the patient's lab results. 10/16/25 10:56 10/16/25 10:56 Labs: Lab Results 10/16/25 10/16/25 Range/Units 10:56 11:03 WBC 5.8 (4.8-10.8) X10*3/uL RBC 4.82 (4.20-5.50) X10*6/uL Hgb 13.5 (12.0-16.0) g/dl Hct 41.1 (37.0-47.0) % MCV 85.3 (80.0-98.0) fL MCH 28.0 (27.0-33.0) pg MCHC 32.8 (31.0-35.0) g/dl RDW 12.3 (11.0-16.0) % Plt Count 290 (160-400) X10*3/uL MPV 10.1 (9.4-12.3) fL Immature Gran % (Auto) 0.3 (0.0-0.4) % Neut % (Auto) 58.1 (45-73) % Lymph % (Auto) 28.0 (20-40) % [place] % (Auto) 7.5 (2-11) % Eos % (Auto) 5.8 H (0-4) % Baso % (Auto) 0.3 (0-2) % Lymph # (Auto) 1.6 (1.2-4.9) X10*3/uL [place] # (Auto) 0.4 (0.1-1.2) X10*3/uL Eos # (Auto) 0.3 (0.0-0.4) X10*3/uL Baso # (Auto) 0.0 (0.0-0.2) X10*3/uL Abs Immat Gran (auto) 0.02 (0.00-0.03) X10*3/uL Absolute Neuts (auto) 3.4 (2.0-8.3) x10*3/uL Absolute Nucleated RBC 0.000 (0.0-0.012) X10*3/uL Nucleated RBC % (auto) 0.0 (0.0-0.2) /100WBC Sodium 138 (135-145) mmol/L Potassium 4.3 (3.3-5.1) mmol/L Chloride 105 (96-108) mmol/L Carbon Dioxide 26 (22-29) mmol/L Anion Gap 11 L (12-20) BUN 11 (9-16) mg/dL Creatinine 0.71 (0.5-1.4) mg/dL Estim Creat Clear Calc 128.2 Estimated GFR > 60 Random Glucose 95 (60-115) mg/dL Calcium 9.6 (8.4-10.2) mg/dL Total Bilirubin 0.7 (0.0-1.0) mg/dL Direct Bilirubin 0.2 (0.0-0.5) mg/dL AST 32 H (5-31) U/L ALT 58 H (0-31) U/L Alkaline Phosphatase 66 (39-117) U/L Total Protein 7.7 (6.5-8.0) g/dL Albumin 4.7 (3.5-5.0) g/dL Beta HCG, Quant < 2 mIU/mL Urine Color Yellow Urine Appearance Turbid Urine pH 5.5 (5.0-9.0) Ur Specific Red Level 1.025 (1.005-1.025) Urine Protein Trace (Neg-Trace) mg/dL Urine Glucose (UA) Negative (Negative) mg/dL Urine Ketones Negative (Negative) mg/dL Urine Blood Negative (Negative) Urine Nitrite Negative (Negative) Ur Leukocyte Esterase Moderate (2+) H (Negative) Urine RBC 0-2 (0-2) /HPF Urine WBC 0-5 (0-5) /HPF Ur Squamous Epith Cells >20 (0-2) /HPF Urine Bacteria 4+ (None Seen) Hyaline Casts 0-2 (0-2) /LPF Influenza Type A (PCR) NEGATIVE (Negative) Influenza Type B (PCR) NEGATIVE (Negative) RSV RNA Qual (PCR) NEGATIVE (Negative) SARS-CoV-2 RNA (RT-PCR) NEGATIVE (Negative) External Record Review External record reviewed: Inpatient record, Office record, Outpatient record and Prior outpatient labs Chronic Conditions Patient?s care impacted by: Other (Anemia) Discharge Plan Discharge Clinical Impression: Headache, migraine Patient Disposition: Home, Self-Care Instructions: Migraine Headache (ED) Additional Instructions: you were evaluated in the emergency department today due to body aches, nausea, and headache. Your blood work was reassuring as there was no elevation of your white blood count indicative of systemic infection, your viral serology including COVID, flu, RSV was negative today. Your symptoms are most likely migraine headache versus viral syndrome. No indication for antibiotics at this time. To manage pain at home you can take 500 mg of Tylenol, and 400 mg of ibuprofen every 6 hours. I encourage you to follow up with your primary care doctor to ensure resolution of your symptoms. Please return to the emergency department if you experience fevers over 100.4?, worsening nausea, worsening headache, double/ blurry vision, vomiting, or any new/worsening/concerning symptoms. Prescriptions: No Action azithromycin 250 mg tablet See Rx Instructions .ROUTE .COMPLEX Qty: 6 0RF Rx Instructions: take 500 mg today (day 1), then 250 mg for 4 days (days 2-5) oseltamivir [Tamiflu] 75 mg capsule 75 mg PO BID Qty: 10 0RF ibuprofen 600 mg tablet 600 mg PO TID PRN (Reason: fever or pain) Qty: 14 0RF acetaminophen 500 mg tablet 500 mg PO Q6H PRN (Reason: fever or pain) Qty: 20 0RF albuterol sulfate 90 mcg/actuation HFA aerosol inhaler 2 puff inhalation Q4-6H PRN (Reason: bronchospasm) Qty: 6.7 0RF phenazopyridine [Pyridium] 200 mg tablet 200 mg PO TID PRN (Reason: bladder pain) Qty: 10 0RF ywzikdxccg-lkoblnjtimcyr-thaz 50-325-40 mg tablet 1 tab PO Q4-6H PRN (Reason: headache) Qty: 10 0RF azithromycin [Zithromax Z-Amari] 250 mg tablet See Rx Instructions .ROUTE .COMPLEX Qty: 6 0RF Rx Instructions: take 500 mg today (day 1), then 250 mg for 4 days (days 2-5) cefpodoxime 200 mg tablet 200 mg PO BID Qty: 14 0RF Rx Instructions: must administer with a meal/food meclizine 25 mg tablet 25 mg PO QID PRN (Reason: motion sickness) Qty: 20 0RF lidocaine 5 % adhesive patch,medicated 1 patch topical DAILY Rx Instructions: leave on most painful area for up to 12 hrs naproxen 500 mg tablet 500 mg PO BID Stand Alone Forms: Work/School Release Print Language: Chilean
[2025-10-16 11:26] LABS: MANUAL DIFF FLAG NO
[2025-10-16 11:33] LABS: Hematocrit 41.1 % (37.0-47.0); Hemoglobin 13.5 g/dl (12.0-16.0); Imm Gran Abs Auto 0.02 X10*3/uL (0.00-0.03); Imm Gran Pct Auto 0.3 % (0.0-0.4); Lymphocytes Absolute Auto 1.6 X10*3/uL (1.2-4.9); Mean Corpuscular HGB Conc 32.8 g/dl (31.0-35.0); Mean Corpuscular Hemoglobin 28.0 pg (27.0-33.0); Mean Corpuscular Volume 85.3 fL (80.0-98.0); NRBC Abs Auto 0.000 X10*3/uL (0.0-0.012); NRBC Pct Auto 0.0 /100WBC (0.0-0.2); Platelet Count 290 X10*3/uL (160-400); Red Blood Count 4.82 X10*6/uL (4.20-5.50); White Blood Count 5.8 X10*3/uL (4.8-10.8)
[2025-10-16 11:39] LABS: Appearance Urine Turbid; Glucose Urine UA Negative (Negative); PH 5.5 (5.0-9.0); Specific Gravity - Urine 1.025 (1.005-1.025); UMIC TRIGGER UACC YES
[2025-10-16 11:45] LABS: Alanine Aminotransferase 58 U/L (0-31); Albumin Level 4.7 g/dL (3.5-5.0); Alkaline Phosphatase 66 U/L (39-117); Anion Gap 11 (12-20); Aspartate Amino Transferase 32 U/L (5-31); Blood Urea Nitrogen 11 mg/dL (9-16); Calcium 9.6 mg/dL (8.4-10.2); Carbon Dioxide 26 mmol/L (22-29); Chloride 105 mmol/L (96-108); Creatinine Clr Calc Pharmacy 128.2; Estimated Glomerular Filt Rate > 60; Potassium 4.3 mmol/L (3.3-5.1); Sodium 138 mmol/L (135-145); Total Protein 7.7 g/dL (6.5-8.0)
[2025-10-16 11:49] LABS: UACC Culture Trigger YES
[2025-10-16 12:06] LABS: Resp Syncy Virus RNA Qual PCR NEGATIVE (Negative); SARS COV2 PCR INHOUSE NEGATIVE (Negative)
[2025-10-16 12:37] VITALS: BP 108/50; PULSE 68; RESP 14; TEMP 36.7; O2SAT 97
[2025-10-16] MEDS: Lactated Ringers 1,000 ML 999 ML IV (13:54)
[2025-10-16 13:59] VITALS: BP 105/63; PULSE 65; RESP 14; O2SAT 98
--- OUTSIDE RECORDS SUMMARY | 2025-10-16 14:11 | XMS_ITS | Encounter Summary ---
Author Organization [employer] Address [address] [place] [address] [address] [place] [address] Care Team Providers Care Staff Occupational Therapist Name Role Phone Poonam Mcdonnell MD Primary Care Provider [phone]- [phone] Reason for Visit * Reason Onset Date Comments Triage 03/01/2023 Encounter Details Date Type Department Care Team ([facility] st Contact Info) Description 03/01/2023 Telephone [facility] [address] [place], [place] [id number] Poonam Mcdonnell MD [address] [place] [address] Triage Social History Tobacco Use Types Packs/Day Years Used Date Smoking Tobacco: Never Smokeless Tobacco: Never Alcohol Use Standard Drinks/Week Comments Never 0 (1 standard drink = 0.6 oz pur e alcohol) Depression Answer Date Recorded Patient Health Questionnaire-2 Score 0 01/11/2023 Comments Unknown Sex and Gender Information Value Date Recorded Sex Assigned at Female 08/29/2022 10:18 AM EDT Legal Sex Female 10:18 AM EDT Gender Identity Female 08/29/2022 10:18 AM EDT Sexual Orientation Choose not to disclose 2021 10:18 AM EDT documented as of this encounter Miscellaneous Notes * Telephone Encounter - Paulette Marrufo RN - 03/01/2023 9:39 AM EDT Triage call with [place] [id number] Pt was seen in [facility] ED for low back and left hip pain, 5/2. Pt reports Pt was given motrin and tylenol and told to contact PCP. Pt reports standing and sitting cause low back pain and sometimes numbness in the left leg. Pt is able to walk but, will get the low back pain at a certain point. Pt reports this is something new in the last few weeks and denies injury. apt scheduled to see Dr. Dereck Vu 03/09 @ 1130am Pt agrees with disposition and home care reviewed. Protocol Used: Hip Pain (Adult) Protocol-Based Disposition: See in Office or Video Visit within 2 Weeks Video visit not offered Positive Triage Question: * Mild pain (e.g., does not interfere with normal activities) and present > 7 days * All higher-acuity triage questions were negative Care Advice Discussed: * Reassurance and Education - Hip Pain * Pain Medicines * Pain Medicines - Extra Notes and Warnings * Rest Your Hip for the Next Couple Days * Reasons To Call Back - Moderate pain (e.g., limping) lasts more than 3 days - Mild pain lasts more than 7 days - Signs of infection occur (e.g., spreading redness, warmth, fever) - You become worse * Use a Cold Pack for Pain * Use Heat on Area After 48 Hours * Local Heat (Bathtub Option) * Rest * Telephone Encounter - Nitin Pike - 03/01/2023 9:03 AM EDT Patient calling for F follow up appointment. Patient hospitalized at [facility]. Patient was admitted on 02/28/2023 and discharged on 02/28/2023. Patient was advised will forward to triage nurse for follow up and appointment scheduling. Please contact pt at [phone] Portuguese Speaker Diagnostics: Hip Pain Severe documented in this encounter Plan of Treatment Not on file documented as of this encounter Visit Diagnoses Not on filedocumented in this encounter Care Teams Staff Occupational Therapist Relationship Specialty Start Date End Date Poonam Mcdonnell MD [address] [place] [id number] PCP - General Family Medicine 08/20/12 documented as of this encounter
--- OUTSIDE RECORDS SUMMARY | 2025-10-16 14:11 | XMS_ITS | Encounter Summary ---
Author Organization [employer] Address [address] [place] [address] Care Team Providers Care Farm Crew Member Name Role Phone Poonam Mcdonnell MD Primary Care Provider [phone]- [phone] Encounter Details Date Type Department Care Team (Late st Contact Info) Description 12/27/2022 Abstract [facility] MED[facility]INE [address] [place] [address] Poonam Mcdonnell MD [address] [place] [address] Social History Tobacco Use Types Packs/Day Years Used Date Smoking Tobacco: Never Smokeless Tobacco: Never Alcohol Use Standard Drinks/Week Comments Never 0 (1 standard drink = 0.6 oz pur e alcohol) Comments Unknown Sex and Gender Information Value Date Recorded Sex Assigned at Female 08/29/2022 10:18 AM EDT Legal Sex Female 10:18 AM EDT Gender Identity Female 08/29/2022 10:18 AM EDT Sexual Orientation Choose not to disclose 2021 10:18 AM EDT documented as of this encounter Plan of Treatment Not on file documented as of this encounter Procedures Procedure Name Priority Date/Time Associated Diagnosis Comments HEPATITIS C AB W/REFL TO HCV RNA, QN, PCR Routine 12/29/2021 HIV-1 ANTIBODY, EIA Routine 12/29/2021 documented in this encounter Results * Hepatitis C Antibody with Reflex to HCV, RNA, Quantitative, Real-Time PCR (12/29/2021) Blood Venous blood specimen / Unknown 12/29/2021 Historical Provider LAB BLOOD ORDERABLES Alma Delia l Result * HIV-1 antibody, EIA (12/29/2021) External HIV-1 Antibody Negative Blood Venous blood specimen / Unknown Historical Provider LAB BLOOD ORDERABLES Alma Delia l Result documented in this encounter Visit Diagnoses Not on filedocumented in this encounter Care Teams Farm Crew Member Relationship Specialty Start Date End Date Poonam Mcdonnell MD [address] [place] [address] PCP - General Family Medicine 08/20/12 documented as of this encounter
--- OUTSIDE RECORDS SUMMARY | 2025-10-16 14:11 | XMS_ITS | Clinical Summary ---
Author Organization [employer] Address [address] [facility] [address] [place] [address] Care Team Providers [facility] Coordinator Name Role Phone Poonam Mcdonnell MD Primary Care Provider [phone] Allergies Active Allergy Reactions Criticality Noted Date Comments Penicillins Hives 09/10/2013 Other reaction(s): HIVES Medications lidocaine (Lidoderm) 5 % patchIndications: Chronic bilateral low back pain without sciatica Apply 1 patch topically Once per day. Remove & discard patch within 12 hours or as directed by MD. 30 patch 1 09/11/2025 4:08 PM EST Active naproxen (Naprosyn) 500 MG tabletIndications :Medial epicondylitis of elbow, right Take 1 tablet (500 mg) by mouth with breakfast and with evening meal. 30 tablet 1 5 09/17/20 25 Active Problems Problem Noted Date Diagnosed Date Medial epicondylitis of elbow, right 08/18/2025 Other specified health status 04/12/2023 Overview (09/11/2025): -next comprehensive annual evaluation due after 09/11/26 -eye care facilitated by encouraged -dental home is encouraged -rusty care proxy 09/11/25 Assessment & Plan (09/11/2025 11:39 AM EST): -next comprehensive annual evaluation due after 09/11/26 -eye care facilitated by encouraged -dental home is encouraged -rusty care proxy 09/11/25 Wears glasses 12/30/2021 Resolved Problems Problem Noted Date Diagnosed Date Resolved Date Elevated blood pressure reading 08/18/2025 09/11/2025 Assessment & Plan (08/18/2025 2:41 PM EDT): Probably because of pain I advise low Na diet, weight reduction, monitor BP and f/u with PCP Acute maxillary sinusitis 06/18/2025 Assessment & Plan (06/18/2025 7:45 PM EDT): Drink plenty of fluids and rest I will prescribe doxycycline 100 mg every 12 hours for 7 days in light that patient is allergic to penicillin Cervical sprain, initial encounter 12/19/2022 09/11/2025 Assessment & Plan (03/09/2023 12:53 PM EDT): Chronic -seen by PCP already x it -denies any change -referred by PCP to PT --I called today referrals specialist dept---they will send again apt x pt -I advised pt to call here to check on status of referral if not receiving apt in next 2 weeks -rest as in lumbar pain recs Assessment & Plan (12/19/2022 11:14 PM EST): Rx Tylenol + flexeril x 1w then prn Counseled re heart to affected area Warning signs to go to ED: persistent arm paresthesias, cant move her arm, decreased circulation/change color or UE. FU in 3m Declined PT today Lumbar sprain 12/19/2022 09/11/2025 Assessment & Plan (03/09/2023 8:46 PM EDT): Reports 4 weeks of Lower back pain radiated to her left leg Pt w symptoms of lumbalgia and sciatica w normal neuro exam -advised weight loss -discussed today about using warm compresses in area of pain and to do exercises x back explained today -tylenol ok x mild pain and send naproxen BID prn x mod pain explained not to use w ibuprofen -states not taking that any more -referred today to PT x lower back -explained to reschedule w PCP if no improvement after PT and meds in next 4 to 6 weeks --if no improvement would consider back image but no indication at this time Assessment & Plan (12/19/2022 11:15 PM EST): See above for pOC Go to ED if she develops numbness of LE/peristent, urinary symptoms, fever, can't walk. Call back prn f she wants to be referred to PT Encounters Date Type Department Care Team Description 09/11/2025 10:00 AM EST Office Visit [facility] [address] [place] [phone] Poonam Mcdonnell MD Chronic bilateral low back pain without sciatica (Primary Dx); Cervical cancer screening; Daytime somnolence; Class 2 obesity due to excess calories without serious comorbidity with body mass index (BMI) of 39.0 to 39.9 in adult; Positive depression screening; Dietary counseling; Exercise counseling; Other specified health status; Blood glucose elevated; Screening examination for STI; History of anemia; Vitamin D deficiency; Screening mammogram for breast cancer; Snoring; Encounter for immunization 09/11/2025 Results Follow-Up [facility] [address] [place] [phone] Poonam Mcdonnell MD Hemoglobin A1c, Hepatic Function Panel, Lipid Panel, Standard, Additional followed-up results: 7 09/11/2025 Travel 09/10/2025 Telephone [facility] [address] [place] [phone] Poonam Mcdonnell MD chart prep 09/04/2025 Patient Outreach [facility] [address] [place] [address] Poonam Mcdonnell MD Pre-visit Planning (SDOH negative, Tobacco screening negative. ) 08/18/2025 1:00 PM EDT Office Visit [facility] [address] [place] [phone] Lindsay Fair MD Elevated blood pressure reading (Primary Dx); Medial epicondylitis of elbow, right 08/18/2025 Travel from Last 3 Months Immunizations Immunization Administration Dates Next Due Hep B, adult 09/11/2025,01/11/2023 Influenza injectable quadriv alent preservative free 12/29/2021,07/31/2019,11/03/2016,2014 Influenza, Split (incl. michell fied surface antigen) 08/20/2012 Mark SARS-CoV-2 Vaccination 02/04/2021 Pfizer Covid-19 Vaccine 12+ 02/09/2022 Pfizer Covid-19 Vaccine 12+ aurora-sucrose (Robles Cap) 02/09/2022 Tdap 01/11/2023,08/20/2012 Family History Medical History Relation Name Comments Depression Father Diabetes Father Cancer Maternal Grandmother Relation Name Status Comments Father Maternal Grandmother Social History Tobacco Use Types Packs/Day Years Used Date Smoking Tobacco: Never Passive Smoke Exposure: Never Smokeless Tobacco: Never Tobacco Cessation:Counseling Given: Not Answered Alcohol Use Standard Drinks/Week Comments Never 0 (1 standard drink = 0.6 oz pur e alcohol) Depression Answer Date Recorded Patient Health Questionnaire-9 Score 6 09/11/2025 Patient Health Questionnaire-9 Score 6 09/11/2025 Last PHQ-9: Questionnaire Data Not on file 1 11/11/2024 Housing Stability Answer Date Recorded What is your housing situation today? I have luisa guan 09/04/[address] you li ve. Do you have problems with any of the following? None of the above 09/04/2025 Food Insecurity Answer Date Recorded Within the past 12 months, y ou worried that your food would run out before you got money to buy more: Never True 09/04/2025 Within the past 12 months,th e food you bought just didn't last and you didn't have enough money to get more: Never True 03/2025 Transportation Answer Date Recorded In the past 12 months, has l ack of transportation kept you from medical appts, meetings, work or from getting things needed for daily living? No 09/04/2025 Utilities Answer Date Recorded In the past 12 months, has t he electric, gas, oil or water company threatened to shut off services in your home? No 09/04/2025 Depression Answer Date Recorded Patient Health Questionnaire-2 Score 2 09/11/2025 Internet Access Answer Date Recorded Internet Access Q1 No 09/11/2025 Internet Access Q2 I do not want or need it 08/30 Comments Unknown Intention Date Recorded No desire to become (finding) 1 11/11/2024 Sex and Gender Information Value Date Recorded Sex Assigned at Female 08/29/2022 10:18 AM EDT Legal Sex Female 10:18 AM EDT Gender Identity Female 08/29/2022 10:18 AM EDT Sexual Orientation Choose not to disclose 2021 10:18 AM EDT Last Filed Vital Signs Vital Sign Reading Time Taken Comments Blood Pressure 116/72 09/11/2025 10:24 AM EST Pulse 71 09/11/2025 10:24 AM EST Temperature 37.2 C (98.9 F) 09/11/2025 10:24 AM EST Respiratory Rate 20 09/11/2025 10:24 AM EST Oxygen Saturation 97% 09/11/2025 10:24 AM EST Inhaled Oxygen Concentration - - Weight 112 kg (246 lb 6.4 oz) 09/11/2025 10:24 A M EST Height 167.6 cm (5' 6 ) 08/18/2025 12:58 PM EDT Body Mass Index 39.77 08/18/2025 12:58 PM EDT Plan of Treatment Health Maintenance Due Date Last Done Comments HPV Vaccines (1 - 3-dose series) 2000 Mammogram 2025 Hepatitis B Vaccines (3 of 3 - 19+ 3-dose series) 11/06/2025 09/11/2025, 01/11/2023 Influenza Vaccine (#1) 2026 2, 07/31/2019, 11/03/2016, Additional history exists Postponed from 06/30/2025 (Patient Refused) Alcohol/Substance Use Screening 09/11/2026 09/11/2025 COVID-19 Vaccine ( season) 2026 02/09/2022, 02/09/2022, 02/04/2021 Postponed from 06/30/2025 (Patient Refused) Depression Screening 09/11/2026 09/11/2025, 09/11/20 25 Disability Screening 09/11/2026 09/11/2025 Family Planning (PISQ) 09/11/2026 09/11/2025 SDOH Screening 09/11/2026 09/11/2025 Tobacco Screening 09/11/2026 09/11/2025 Cervical Cancer Screening 09/11/2030 HPV/Cotest 09/11/2030 09/11/2025 Lipid Panel 09/11/2030 09/11/2025, 12/29/2021 Pap Smear 09/11/2030 09/11/2025 DTaP/Tdap/Td Vaccines (3 - Td or Tdap) 01/11/2033 01/11/2023, 08/20/2012 Zoster Vaccines (1 of 2) 2035 RSV Patients and Patients Aged 60 years or older (1 - 1-dose 75+ series) 2060 HIV Screening Completed 09/11/2025, 11/2021, 12/29/2021 Hepatitis C Screening Completed 09/11/2025 , 12/29/2021, 12/29/2021 HIB Vaccines Aged Out No longer eligi ble based on patient's age to complete this topic Hepatitis A Vaccines Aged Out No long er eligible based on patient's age to complete this topic IPV Vaccines Aged Out No longer eligi ble based on patient's age to complete this topic Meningococcal B Vaccine Aged Out No l onger eligible based on patient's age to complete this topic Meningococcal Vaccine Aged Out No stephy yazan eligible based on patient's age to complete this topic Pneumococcal Vaccine: Pediatrics (0 to 5 Years) and At-Risk Patients (6 to 49) Years Aged Out No longer eligible based on patient's age to complete this topic RSV under 20 months Aged Out No longe r eligible based on patient's age to complete this topic Rotavirus Vaccines Aged Out No longer eligible based on patient's age to complete this topic Procedures Procedure Name Priority Date/Time Associated Diagnosis Comments URINALYSIS, COMPLETE, WITH REFLEX TO CULTURE Routine 10/16/2025 11:03 AM EST HCG, TOTAL, QN Routine 10/16/2025 10:56 AM EST BASIC METABOLIC PANEL Routine 10/16/2025 10:56 AM EST HEPATIC FUNCTION PANEL Routine 10/16/2025 10:56 AM EST CBC WITH AUTO DIFFERENTIAL Routine 10/16/2025 10:56 AM EST SARS COV2/INFLUENZA A/B AND RSV RNA QL NAAT Routine 10/16/2025 10:56 AM EST VITAMIN B12/FOLATE, SERUM PANEL Routine 09/11/2025 11:38 AM EST History of anemia IRON AND TOTAL IRON BINDING CAPACITY Routine 09/11/2025 11:38 AM EST History of anemia FERRITIN Routine 09/11/2025 11:38 AM EST History of anemia CBC WITH AUTO DIFFERENTIAL Routine 09/11/2025 11:38 AM EST History of anemia SYPHILIS SCREEN Routine 09/11/2025 11:38 AM EST Screening examination for STI HEPATITIS C AB W/REFL TO HCV RNA, QN, PCR Routine 09/11/2025 11:38 AM EST Screening examination for STI HIV 1/2 ANTIGEN/ANTIBODY, FOURTH GENERATION W/RFL Routine 09/11/2025 11:38 AM EST Screening examination for STI VITAMIN D,25-OH,TOTAL,IA Routine 09/11/2025 11:38 AM EST Vitamin D deficiency TSH W/REFLEX TO FT4 Routine 09/11/2025 1 1:38 AM EST Class 2 obesity due to excess calories without serious comorbidity with body mass index (BMI) of 39.0 to 39.9 in adult BASIC METABOLIC PANEL Routine 09/11/2025 11:38 AM EST Class 2 obesity due to excess calories without serious comorbidity with body mass index (BMI) of 39.0 to 39.9 in adult LIPID PANEL, STANDARD Routine 09/11/2025 11:38 AM EST Class 2 obesity due to excess calories without serious comorbidity with body mass index (BMI) of 39.0 to 39.9 in adult HEPATIC FUNCTION PANEL Routine 09/11/2025 11:38 AM EST Class 2 obesity due to excess calories without serious comorbidity with body mass index (BMI) of 39.0 to 39.9 in adult HEMOGLOBIN A1C Routine 09/11/2025 11:38 AM EST Blood glucose elevated PAP SMEAR Routine 09/11/2025 11:14 AM EST Cervical cancer screening HPV DNA, LOW/HIGH RISK Routine 09/11/2025 11:14 AM EST from Last 3 Months Results * (ABNORMAL) Urinalysis, Complete, with Reflex to Culture (10/16/2025 11:03 AM EST) Color Urine Yellow [facility] Appearance Urine Turbid [facility] PH 5.5 5.0 - 9.0 [facility] Glucose Urine UA Negative Negative mg/dL [facility] Urine Blood Negative Negative [facility] Specific [place] - Urine 1.025 1.005 - 1.025 [facility] Urine Protein Trace Neg-Trace mg/dL [facility] Urine Ketones Negative Negative mg/dL [facility] Nitrite Urine Negative Negative [facility] Leukocyte Esterase Urine Moderate (2+)(A) Negative [facility] RBC Urine 0-2 0 - 2 /HPF [facility] Urine WBC 0-5 0 - 5 /HPF [facility] Urine Squamous Epithelial Cell >20 0 - 2 /HPF [facility] Urine Bacteria 4+ None Seen [facility] Hyaline Casts, Urine 0-2 0 - 2 /LPF [facility] 10/16/2025 11:0 3 AM EST 10/16/2025 11:35 AM EST Narrative [facility] - 10/16/2025 11:49 AM EST [id number], Clean Catch us Generic External Data Provider LAB URINE ORDERAB LES Final Result [facility] [address] [place] [phone] * SARS-CoV-2 RNA, Influenza A/B, and RSV RNA, Ql NAAT (10/16/2025 10:56 AM EST) Pathologist [facility] Influenza A PCR NEGATIVE Negative [facility] Influenza B PCR NEGATIVE Negative [facility] Resp Syncy Virus RNA Qual PCR NEGATIVE Negative [facility] SARS COV2 PCR NEGATIVE Negative [facility] Comment:All test results mus t be correlated with clinical findings.Negative results do not preclude SARS-CoV2, influenza Avirus, influenza B virus and/or RSV infectionand should not be used as the sole basis for treatment orother patient management decisions. Negative results must becombined with clinical observations, patient history, andepidemiological information.This test has not been evaluated for monitoring treatment ofinfection.This test has been authorized by the FDA under an EmergencyUse Authorization (EUA) for use by authorized laboratories.Testing performed on the [employer] GeneXpert utilizingreal-time RT-PCR.All SARS CoV2 and positive influenza A/B results arereported to [facility]. 10/16/2025 10:5 6 AM EST 10/16/2025 11:25 AM EST us Generic External Data Provider LAB MICROBIOLOGY - GENERAL ORDERABLES Final Result [facility] [address] [place] [phone] * (ABNORMAL) CBC auto differential (10/16/2025 10:56 AM EST) Only the most recent of2 resultswithin the time period is included. White Blood Count 5.8 4.8 - 10.8 X10*3/uL [facility] Red Blood Count 4.82 4.20 - 5.50 X10*6/uL [facility] Hemoglobin 13.5 12.0 - 16.0 g/dl [facility] Hematocrit 41.1 37.0 - 47.0 % [facility] Mean Corpuscular Volume 85.3 80.0 - 98.0 fL [facility] Mean Corpuscular Hemoglobin 28.0 27.0 - 33.0 pg [facility] Mean Corpuscular HGB Conc 32.8 31.0 - 35.0 g/dl [facility] Red Cell Distribution Width 12.3 11.0 - 16.0 % [facility] Platelet Count 290 160 - 400 X10*3/uL [facility] Mean Platelet Volume 10.1 9.4 - 12.3 fL [facility] Neutrophils Percent Auto 58.1 45 - 73 % [facility] Imm Gran Pct Auto 0.3 0.0 - 0.4 % [facility] Lymphocytes Percent Auto 28.0 20 - 40 % [facility] Monocytes Percent Auto 7.5 2 - 11 % [facility] Eosinophils Percent Auto 5.8(H) 0 - 4 % [facility] Basophils Percent Auto 0.3 0 - 2 % [facility] NRBC Pct Auto 0.0 0.0 - 0.2 /100WBC [facility] Neutrophils Absolute Auto 3.4 2.0 - 8.3 x10*3/uL [facility] Imm Gran Abs Auto 0.02 0.00 - 0.03 X10*3/uL [facility] Lymphocytes Absolute Auto 1.6 1.2 - 4.9 X10*3/uL [facility] Monocytes Absolute Auto 0.4 0.1 - 1.2 X10*3/uL [facility] Eosinophils Absolute Auto 0.3 0.0 - 0.4 X10*3/uL [facility] Basophils Absolute Auto 0.0 0.0 - 0.2 X10*3/uL [facility] NRBC Abs Auto 0.000 0.0 - 0.012 X10*3/uL [facility] 10/16/2025 10:5 6 AM EST 10/16/2025 11:25 AM EST us Generic External Data Provider LAB BLOOD ORDERAB LES Final Result [facility] [address] [place] [phone] * hCG, Total, Quantitative (10/16/2025 10:56 AM EST) HCG Quantitative <2 mIU/mL [facility] Comment:Weeks post LMP Appr oximate hCG(Last Menstrual Period) Range (mIU/ml)3 - 4 weeks 9 - 1304 - 5 weeks 75 - 2,6005 - 6 weeks 850 - 20,8006 - 7 weeks 4000 - 100,2007 - 12 weeks 11,500 - 289,06997 - 16 weeks 18,300 - 137,27331 - 29 weeks (2nd trimester) 1,400 - 53,73683 - 41 weeks (3rd trimester) 940 - 60,000The [place]ños B- hCG assay is used for the early detection ofpregnancy; it cannot be used to diagnose any conditionunrelated to . If a B-hCG level is not supportedby the clinical evidence, results should be confirmed by analternative method (qualitative urine hCG, for example). 10/16/2025 10:5 6 AM EST 10/16/2025 11:25 AM EST us Generic External Data Provider LAB BLOOD ORDERAB LES Final Result [facility] [address] [place] [address] [phone] * (ABNORMAL) Hepatic Function Panel (10/16/2025 10:56 AM EST) Only the most recent of2 resultswithin the time period is included. Bilirubin, Total 0.7 0.0 - 1.0 mg/dL [facility] Bilirubin, Direct 0.2 0.0 - 0.5 mg/dL [facility] Aspartate Amino Transferase 32(H) 5 - 31 U/L [facility] Alanine Aminotransferase 58(H) 0 - 31 U/L [facility] Total Protein 7.7 6.5 - 8.0 g/dL [facility] Albumin Level 4.7 3.5 - 5.0 g/dL [facility] Alkaline Phosphatase 66 39 - 117 U/L [facility] 10/16/2025 10:5 6 AM EST 10/16/2025 11:25 AM EST us Generic External Data Provider LAB BLOOD ORDERAB LES Final Result [facility] [address] [place] [phone] * (ABNORMAL) Basic Metabolic Panel (10/16/2025 10:56 AM EST) Only the most recent of2 resultswithin the time period is included. Sodium 138 135 - 145 mmol/L [facility] Potassium 4.3 3.3 - 5.1 mmol/L [facility] Chloride 105 96 - 108 mmol/L [facility] Carbon Dioxide 26 22 - 29 mmol/L [facility] Anion Gap 11(L) 12 - 20 [facility] Urea Nitrogen (BUN) 11 9 - 16 mg/dL [facility] Creatinine, Serum 0.71 0.5 - 1.4 mg/dL [facility] Creatinine Clr Calc Pharmacy 128.2 [facility] Comment:Provided height and weight: 167.64 cm,103.9 kg.eGFR (calculated from the MDRD study equation) and eCrCl(calculated from the Cockcroft-Gault equation) are based ondifferent parameters and may not yield comparable results.If eCrCl result is absurd, please check patient'sheight/weight. Estimated Glomerular Filt Rate >60 [facility] Comment:Chronic Kidney Disea se: Estimated GFR < 60 mL/min/[id number] Kidney Disease: Estimated GFR < 15 mL/min/1.73m2 Glucose 95 60 - 115 mg/dL [facility] Calcium 9.6 8.4 - 10.2 mg/dL [facility] 10/16/2025 10:5 6 AM EST 10/16/2025 11:25 AM EST us Generic External Data Provider LAB BLOOD ORDERAB LES Final Result Performing Organization Address City/[facility]/ZIP Co de Phone Number [facility] [address] [place] [address] [phone] * Syphilis Screen (09/11/2025 11:38 AM EST) Syphilis Screen Nonreactive Nonreactive [facility] Blood Venous blood specimen / Unknown 09/11/2025 11:38 AM EST 09/11/2025 12:58 PM EST Poonam Mcdonnell MD LAB BLOOD ORDERABLES Final Result Performing Organization Address [facility] Co de Phone Number [facility] [address] [place] [phone] * Vitamin D, 25-Hydroxy, Total, Immunoassay (09/11/2025 11:38 AM EST) Vitamin D 25-OH Total 41.1 >30 ng/mL [facility] Comment: Health Based Reference Values*< 20 ng/mL Urjdodwre02-18 ng/mL Insufficient> 30 ng/mL Sufficient*Raquel LOZANO. N Engl J Med. 2007;357:266-280There is no well-established upper level of normal vitamin Dlevels. Some laboratories use 50 ng/mL as an upper limit ofnormal. However, toxicity is patient-dependent and may occurat any level. Careful correlation with the patient'spresentation is necessary and, if there is concern forvitamin D toxicity, treatment should be consideredirrespective of the serum level.Care must be taken in interpreting Vitamin D results fromdifferent laboratories and methodologies. Published datademonstrated that results from patients undergoinghemodialysis may show a negative bias when tested withvarious automated 25-OH vitamin D assays when compared toLC-MS/MS.When testing samples from patients whose predominant form ofVitamin D is Vitamin D2, such as patients receiving VitaminD2 supplementation, results that are subtherapeutic shouldbe confirmed with another method such as LC-MS/MS. Blood 09/11/2025 11:3 8 AM EST 09/11/2025 12:58 PM EST Poonam Mcdonnell MD LAB BLOOD ORDERABLES Final Result Performing Organization Address City/[facility]/ZIP Co de Phone Number [facility] [address] [place] [phone] * Vitamin B12 (Cobalamin) and Folate Panel, Serum (09/11/2025 11:38 AM EST) Vitamin B12 835 200 - 900 pg/mL [facility] Comment:NORMAL 200-900 PG/ML INDETERMINATE 160-199 PG/ML DEFICIENT < 160 PG/ML Folate 9.2 > or = 4.0 ng/mL [facility] Comment:Reference Values:> o r = 4.0 ng/mL< 4.0 ng/mL suggests folate deficiency Methotrexate, aminopterin and folinic acid(leucovorin) are chemotherapeutic agents whose molecularstructures are similar to folate; therefore, the Architectfolate assay cannot be used for patients using these drugs. Blood Venous blood specimen / Unknown 09/11/2025 11:38 AM EST 09/11/2025 12:58 PM EST Poonam Mcdonnell MD LAB BLOOD ORDERABLES Final Result Performing Organization Address [facility]/ZIP Co de Phone Number [facility] [address] [place] [phone] * TSH with Reflex to Free T4 (09/11/2025 11:38 AM EST) TSH reflex Free T4 1.63 0.32 - 4.0 uIU/mL [facility] Blood 09/11/2025 11:3 8 AM EST 09/11/2025 12:58 PM EST Poonam Mcdonnell MD LAB BLOOD ORDERABLES Final Result Performing Organization Address City/[facility]/ZIP Co de Phone Number [facility] [address] [place] [phone] * Hepatitis C Antibody with Reflex to HCV, RNA, Quantitative, Real-Time PCR (09/11/2025 11:38 AM EST) Pathologist [facility] Hepatitis C Antibody Nonreactive Nonreactive [facility] Comment:Antibodies to HCV no t detected; does not exclude early acuteHCV infection. Blood Venous blood specimen / Unknown 09/11/2025 11:38 AM EST 09/11/2025 12:58 PM EST Poonam Mcdonnell MD LAB BLOOD ORDERABLES Final Result Performing Organization Address [facility]/ZIP Co de Phone Number [facility] [address] [place] [phone] * Iron And Total Iron Binding Capacity (09/11/2025 11:38 AM EST) [facility] Iron 83 30 - 160 mcg/dL [facility] Total Iron Binding Capacity 270 228 - 428 mcg/dL [facility] Percent Iron Saturation 31 15 - 50 % [facility] Unsaturated Iron Binding 187 ug/dL [facility] Blood Venous blood specimen / Unknown 09/11/2025 11:38 AM EST 09/11/2025 12:58 PM EST Poonam Mcdonnell MD LAB BLOOD ORDERABLES Final Result Performing Organization Address [facility] Co de Phone Number [facility] [address] [place] [phone] * HIV-1/2 Antigen and Antibodies, Fourth Generation, with Reflexes (09/11/2025 11:38 AM EST) Pathologist [facility] HIV AB/AG Nonreactive Nonreactive [facility] Comment:HIV-1 p24 Ag and/or HIV-1/HIV-2 Ab not detected.A test result that is nonreactive does not exclude thepossibility of exposure to or infection with HIV-1 and/orHIV-2. Nonreactive results in this assay for individualswith prior exposure to HIV-1 and/or HIV-2 may be due toantigen and antibody levels that are below the limit ofdetection of this assay.The [employer] HIV Ag/Ab Combo assay result andsupplemental assay results should be interpreted inconjunction with the patient's clinical presentation,history and other laboratory results. If the results areinconsistent with clinical evidence, additional testing issuggested to confirm the result. Blood Venous blood specimen / Unknown 09/11/2025 11:38 AM EST 09/11/2025 12:58 PM EST Poonam Mcdonnell MD LAB BLOOD ORDERABLES Final Result Performing Organization Address [facility]/ZIP Co de Phone Number [facility] [address] [place] [phone] * Hemoglobin A1c (09/11/2025 11:38 AM EST) Hemoglobin A1c 5.5 <6.0 % [facility] Comment:Hemoglobin A1C Refer ence Range Adults: 4.8 - 6.0 % Non diabetic: < 6.0 % Goal: < 7.0 %Additional Action Suggested: > 8.0 %Note: Hemoglobin A1c results are invalid for patients with abnormal amounts of HbF. Blood transfusions may impact the HbA1c concentration in the patient sample. Estimated Average Glucose 111 mg/dL [facility] Comment:eAG = Estimated ave rage glucose which is %A1C expressed asaverage glucose, using the formula of the Y6K-RhyucmuCwlfmst Glucose study (ADAG), Diabetes Care, Vol.31,#8,May. 2007 Blood Venous blood specimen / Unknown 09/11/2025 11:38 AM EST 09/11/2025 12:58 PM EST Poonam Mcdonnell MD LAB BLOOD ORDERABLES Final Result Performing Organization Address [facility]/ZIP Co de Phone Number [facility] [address] [place] [phone] * Ferritin (09/11/2025 11:38 AM EST) Ferritin 221 10 - 250 ng/mL [facility] Blood Venous blood specimen / Unknown 09/11/2025 11:38 AM EST 09/11/2025 12:58 PM EST Poonam Mcdonnell MD LAB BLOOD ORDERABLES Final Result Performing Organization Address [facility] Co de Phone Number [facility] [address] [place] [phone] * (ABNORMAL) Lipid Panel, Standard (09/11/2025 11:38 AM EST) Triglycerides 120 <150 mg/dL [facility] Comment:Desirable Triglyceri de: less than 150 mg/dLBorderline High Triglyceride 150-199 mg/dLHigh Triglyceride: 200-499 mg/dLVery High Triglyceride: greater than or equal to 5OO mg/dL Cholesterol 181 <200 mg/dL [facility] Comment:Desirable Cholestero l: less than 200 mg/dLBorderline High Cholesterol: 200-239 mg/dLHigh Cholesterol: greater than 239 mg/dL LDL Cholesterol Calculated 114(H) <100 mg/dL [facility] Comment:Desirable LDL: less than 100 mg/dLNear Optimal/Above Optimal LDL: 110- 129 mg/dLBorderline High LDL: 130-159 mg/dLHigh LDL: 160-189 mg/dLVery High LDL: greater than or equal to 190 mg/dL HDL Cholesterol 43 >40 mg/dL [facility] Comment:Desirable HDL: great er than 40 mg/dL Note: This HDL assay may give artificially low results in patients with liver disease. Blood Venous blood specimen / Unknown 09/11/2025 11:38 AM EST 09/11/2025 12:58 PM EST Poonam Mcdonnell MD LAB BLOOD ORDERABLES Final Result Performing Organization Address City/[facility]/ZIP Co de Phone Number [facility] [address] [place] [phone] * HPV DNA, Low/High Risk (09/11/2025 11:14 AM EST) HPV High Risk Negative Negative [facility] HPV Genotype 16 Negative Negative [facility] HPV Genotype 18 Negative Negative [facility] Comment:HPV testing performe d at [facility] (CLIA#[id number]), [address] [place] [phone].Testing for HPV was performed using the [employer] 6800system. The presence of HPV in the female genital tract isassociated with a number of diseases, including cervicalcarcinoma. The HPV DNA high risk pool tests for HPV 31, 33,35, 39, 45, 51, 52, 56, 58, 59, 66 and 68. The testing forHPV 16 and 18 genotypes has also been performed. A positiveresult indicates detection of nucleic acid sequences fromone or more subtypes, whereas a negative result indicatessuch sequences were not detected. 09/11/2025 11:1 4 AM EST 09/12/2025 7:54 AM EST us Poonam Mcdonnell MD LAB BLOOD ORDERABLES Final Result [facility] [address] [place] [phone] * Pap Smear (09/11/2025 11:14 AM EST) Swab 09/11/2025 11:1 4 AM EST 09/12/2025 7:54 AM EST Narrative [facility] - 09/17/2025 11:01 AM EST ----- ------- Name: Amna Fields Age/Sex: 40/F : 1985 Unit#: [id number] Attend Dr: Poonam Mcdonnell MD Re09/11/25 Status: [facility] REF Location: [facility] Disch: ----- ------- SPEC : [id number] RECD: 09/12/25 STATUS: JEREMIAH KATE NUM: [id number] JACOB: 09/11/[address] [facility] [address]: Poonam Mcdonnell MD ENTERED: 09/12/25 SP TYPE: Pap Smr OTHR DR: ORDERED: Pap Smear Interpretation Satisfactory for evaluation. Negative for intraepithelial lesion or malignancy. Coccobacilli consistent with shift in vaginal rylie. HPV High Risk: Negative HPV Genotyping 16: Negative HPV Genotyping 18: Negative Clinical Information LMP: IUD Previous PAP test: >5 years ago, WNL Other history: Cervical cancer screening Material Received ThinPrep-Vaginal/Cervical PAP Disclaimer As of August 21, 2024, the technical services to include automated prescreening performed by the ThinPrep Imaging System, PAP screening and HPV testing will be performed at [facility] (CLIA #[id number]), [address] [place] [address]. Testing for HPV was performed using the [employer] 6800 system. The presence of HPV in the female genital tract is associated with a number of diseases, including cervical carcinoma. The HPV DNA high risk pool tests for HPV 31, 33, 35, 39, 45, 51, 52, 56, 58, 59, 66 and 68. The testing for HPV 16 and 18 genotypes has also been performed. A positive result indicates detection of nucleic acid sequences from one or more subtypes, whereas a negative result indicates such sequences were not detected. All professional services are performed by [facility] ([address] [place] [address], [place] [address]; ; CLIA #[id number]). The PAP Test is a screening procedure with the inherent possibility of both false negative and false positive results. Results should be interpreted in the context of historic and current clinical findings. Reliability of the PAP Test is enhanced by performing the test on a regular repetitive basis. CONTINUED ON NEXT PAGE ----- ------- Name: Amna Fields Age/Sex: 40/F : 1985 Unit#: [id number] Attend Dr: Poonam Mcdonnell MD Re09/11/25 Status: [facility] REF Location: [facility] Disch: ----- ------- SPEC : [id number] RECD: 09/12/25 STATUS: JEREMIAH KATE NUM: [id number] JACOB: 09/11/[address] [facility] [address]: Poonam Mcdonnell MD ENTERED: 09/12/25 SP TYPE: Pap Geoffrey LUO DR: ORDERED: Pap Smear ----- ------- Signed (signature on file) JIE Alfred (ASCP) 09/17/25 1101 ----- ------- END OF REPORT us Poonam Mcdonnell MD LAB CYTOLOGY ORDERABLES Fi nal Result [facility] [address] [place] [phone] from Last 3 Months Insurance [employer] C3 Advance Directives Documents on File Type Date Recorded Patient Director Of Personnel Expl anation Advance Directives and Living Will 09/12/2025 1:24 PM Health Care Proxy 09/11/25 Care Teams [facility] Coordinator Relationship Specialty Start Date End Date Poonam Mcdonnell MD [address] [place] [phone] PCP - General Family Medicine 08/20/12
[2025-10-16 17:43] VITALS: BP 105/63; PULSE 65; RESP 14; TEMP 36.3; O2SAT 98
== END 2025-10-16 17:44 | disposition home or self-care (01) ==
PROVIDERS: Physician Assistant Medical; Emergency Provider Emergency Medicine; PCP Family Medicine
DX: G43.909 Migraine, unspecified, not intractable, without status migrainosus (principal); Z03.818 Encounter for observation for suspected exposure to other biological agents ruled out; R29.700 NIHSS score 0; R06.02 Shortness of breath
CPT/HCPCS: 36415; 80048; 80076; 81001; 84702; 85025; 87086; 87147; 87637; 96361; 96365; 96375; 99284; J0131; J1200; J2765; J7120

== ENCOUNTER 2025-10-21 08:35 | Outpatient (AMB) | payer MEDICAID, SELFPAY ==
--- NOTE | 2025-10-21 08:40 | A.OFFVIS_ITS ---
Vital Signs 10/21/25 08:41 Height 5 ft 6 in Weight 239 lb 2 oz BMI 38.6 BP 120/78 Blood Pressure Location Rt brachial Position Sitting Pulse 79 Pulse Source Pulse Oximeter Pulse Oximetry (%) 98 Oxygen Delivery Method Room Air Intake Visit Reasons: ENP-Daytime Somnolence, snoring Intake Note: Daytime somnolence and snoring Application Developer Manager Required: Yes Application Developer Manager Services: Application Developer Manager Present Application Developer Manager Name: Janna Gonsales ID#[id number] Accompanied by: Self / Same As Patient Allergies Penicillins Allergy (Unknown, Verified 10/21/25 08:41) RASH HPI Comments Details: 40 year old female is here for an evaluation of sleep apnea by her pcp Dr. Mcdonnell. 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 She wakes up feeling tired daily.She snores loudly, wakes up with morning headaches, lasting for 2 hours, has blurry vision with dizziness, nausea and vertigo. This improves with tylenol and excedrin. She grinds her teeth and clenches her jaw. Her bed partner says the snoring is disruptive. She talks in her sleep regularly. She tosses and turns all night long. She denies parasomnias and acid reflux. She has anxiety feels easily overwhelmed. She has rls symptoms bilaterally with cramps in the r. calves, improves with magnesium, denies paresthesias. She eats a special diet, no sugars and breads, due elevated BMI and fatty liver. She goes to the gym, walks 30min 2x a week and hydrates with at least 3 16 ounces of water. She denies smoking, MJ, edibles, and alcohol use. She denies fh of seizures, strokes, and sleep apnea. Mom 74 and dad 68 both have diabetes and HTN. [facility] Medical History Snoring Vitamin D deficiency Anemia Daytime somnolence delivery delivered Family History Father Depression Diabetes mellitus Maternal Grandmother Cancer Social History Alcohol intake: never Physical Exam Vital Signs: Last Vital Signs Pulse 79 10/21/25 08:41 BP 120/78 10/21/25 08:41 Pulse Ox 98 10/21/25 08:41 Oxygen Delivery Method Room Air 10/21/25 08:41 BMI result Body Mass Index 38.6 Const General: cooperative, comfortable and no acute distress Nutritional Appearance: obese Orientation/consciousness: patient oriented x3 HEENT Face and sinus: Yes face symmetric Teeth and gingiva: other (mallampti score is 3) Eyes Pupils: Equal, round and reactive pupils present Neck Neck: Yes full ROM Resp Effort & Inspection: normal respiratory effort and able to speak in complete sentences Neuro General: patient oriented x3 and moves all extremities Cranial nerves: Yes Equal, round and reactive pupils present, Yes Normal accommodation reflex present, Yes Normal facial strength present, Yes Midline tongue present, Yes Ability to bilaterally rotate head present and Yes Ability to bilaterally elevate shoulders present Gait exam (Neuro): Normal gait present Motor exam (neuro): 5/5 motor strength present throughout and Normal motor muscle tone present throughout Psych Appearance: grossly normal Speech and movement: Normal speech and movement present Affect: normal affect Results Reviewed Results Reviewed: labs reviewed with pt. AST/ALT elevated refer to pcp. B12/ Vit D /TSH/ folate normal. Assessment & Plan Assessment & Plan (1) Loud snoring: Code(s): R06.83 - Snoring Category: Medical (2) Chronic headaches: Code(s): R51.9 - Headache, unspecified; G89.29 - Other chronic pain Category: Medical Qualifiers: Headache type: tension-type Intractability: intractable Qualified Code(s): G44.221 - Chronic tension-type headache, intractable (3) Excessive daytime sleepiness: Code(s): G47.19 - Other hypersomnia Category: Medical Plan HST to r/o ARMANDO Labs reviewed with pt. She is a mouth breather, will send a full face mask if she has ARMANDO. RLS will monitor for symptoms. headaches start Sumatriptan 25mg po prn headaches may take one additional tablet if headache does not abort. do not exceed more than 4 tablets in a 24 hour period. Orders: Orders RT home sleep study 10/21/25 G47.19 - Other hypersomnia IRON PROFILE Today G47.19 - Other hypersomnia, G47.9 - Sleep disorder, unspecified, R53.83 - Other fatigue Ferritin Today G47.19 - Other hypersomnia Methylmalonic Acid Today G47.19 - Other hypersomnia, G47.9 - Sleep disorder, unspecified, R53.83 - Other fatigue Homocysteine Today G47.19 - Other hypersomnia, G47.9 - Sleep disorder, unspecified, R53.83 - Other fatigue Medications: New sumatriptan succinate take 1 tab at onset of headache; if no relief may repeat 1 tab after at least 2 hrs; max = 4 tabs/24 hr PO 14 tabs 2RF Patient Instructions: Please complete the following fasting labs to rule out deficiencies. CBC/CMP/ B12/ Vit D/ TSH/ Homocysteine and MMA/ Ferritin. Sleep Hygiene provided: set a scheduled bedtime and wake time to help regulate the circadian rhythm and balance the release of pituitary hormones. Sleep in a dark room, temperatures below 68 degrees, and no devices n bed. Limit caffeinated products 6 hours prior to bed, and limit fluids 2-4 hours prior to bed. Gentle night yoga, diffusing essential oils, and playing soft music can be relaxing. Coding Level of Care Code New Pt Level 4 (50514) Diagnoses Loud snoring R06.83 Chronic tension-type headache, intractable G44.221 Headache type: tension-type Intractability: intractable Excessive daytime sleepiness G47.19 Sleep Questionnaire Difficulty falling asleep: No Difficulty staying asleep?: No Number of arousals: 2 Snoring: Yes Witnessed apneas: No Gasping arousals: No Nocturia: No GERD: No Vivid dreams: No Acting out dreams: No Abnormal behavior in sleep: Yes (sleep) Abnormal movements in sleep: Yes (moves alot) Morning headaches: Yes Excessive daytime sleepiness: Yes Daytime naps: Yes Restless legs: Yes Hallucinations: No Sleep paralysis: No Drop attacks: No Sleep Study: No CPAP: No
[2025-10-21 08:41] VITALS: BP 120/78; PULSE 79; O2SAT 98; BMI 38.6
--- OUTSIDE RECORDS SUMMARY | 2025-10-21 08:47 | XMS_ITS | Clinical Summary ---
Author Organization [employer] Address [address] [facility] 7[address] [place] [address] Care Team Providers Care Pest Controller Name Role Phone Poonam Mcdonnell MD Primary Care Provider [phone]- [phone] Allergies Active Allergy Reactions Criticality Noted Date Comments Penicillins Hives 09/10/2013 Other reaction(s): HIVES Medications lidocaine (Lidoderm) 5 % patchIndication s:Chronic bilateral low back pain without sciatica Apply 1 patch topically Once per day. Remove & discard patch within 12 hours or as directed by . 30 patch 1 09/11/2025 4:08 PM EST Active Active Problems Problem Noted Date Diagnosed Date [...] Description 09/11/2025 10:00 AM EST Office Visit [address] [address] Poonam Mcdonnell MD Chronic bilateral low back [...] Snoring; Encounter for immunization 09/11/2025 Results Follow-Up [facility] [address] [place] [phone] Poonam Mcdonnell MD Hemoglobin A1c, Hepatic Function Panel, Lipid Panel, Standard, Additional followed-up results: 7 09/11/2025 Travel 09/10/2025 Telephone [facility] [address] [place] [phone] Poonam Mcdonnell MD chart prep 09/04/2025 Patient Outreach [facility] [address] [place] [address] Poonam Mcdonnell MD Pre-visit Planning (SDOH negative, Tobacco screening negative. ) 08/18/2025 1:00 PM EDT Office Visit [facility] [address] [place] [phone] Lindsay Fair MD Elevated blood pressure reading (Primary Dx); Medial epicondylitis of elbow, right 08/18/2025 Travel from Last 3 Months Immunizations Immunization Administration Dates Next Due Hep B, adult 09/11/2025,01/11/2023 Influenza injectable quadriv alent preservative free 12/29/2021,07/31/2019,11/03/2016,2014 Influenza, Split (incl. michell fied surface antigen) 08/20/2012 [employer] SARS-CoV-2 Vaccination 02/04/2021 Pfizer Covid-19 Vaccine 12+ [...] 75+ series) 2060 HIV Screening Completed 09/11/2025, 030 11/2021, 12/29/2021 Hepatitis C Screening Completed 09/11/2025 [...] QL NAAT Routine 10/16/2025 10:56 AM EST CULTURE, URINE, ROUTINE Routine 10/16/2025 12:00 AM EST VITAMIN B12/FOLATE, SERUM PANEL Routine [...] (10/16/2025 11:03 AM EST) Color Urine Yellow [facility] Appearance Urine Turbid [facility] PH 5.5 5.0 - 9.0 [facility] Glucose Urine UA Negative Negative mg/dL [facility] Urine Blood Negative Negative [facility] Specific [place] - Urine 1.025 1.005 - 1.025 [facility] Urine Protein Trace Neg-Trace mg/dL [facility] Urine Ketones Negative Negative mg/dL [facility] Nitrite Urine Negative Negative [facility] Leukocyte Esterase Urine Moderate (2+)(A) Negative [facility] RBC Urine 0-2 0 - 2 /HPF [facility] Urine WBC 0-5 0 - 5 /HPF [facility] Urine Squamous Epithelial Cell >20 0 - 2 /HPF [facility] Urine Bacteria 4+ None Seen [facility] Hyaline Casts, Urine 0-2 0 - 2 /LPF [facility] 10/16/2025 11:0 3 AM EST 10/16/2025 11:35 AM EST Narrative [facility] - 10/16/2025 11:49 AM EST [id number], Clean Catch us Generic External Data Provider LAB URINE ORDERAB LES Final Result [facility] [address] [place] [address] [phone] * SARS-CoV-2 RNA, Influenza A/B, and RSV RNA, Ql NAAT (10/16/2025 10:56 AM EST) Pathologist [facility] Influenza A PCR NEGATIVE Negative [facility] Influenza B PCR NEGATIVE Negative [facility] Resp Syncy Virus RNA Qual PCR NEGATIVE Negative [facility] SARS COV2 PCR NEGATIVE Negative [facility] Comment:All test results mus t [...] use by authorized laboratories.Testing performed on the [employer] GeneXpert utilizingreal-time RT-PCR.All SARS CoV2 and positive influenza A/B results arereported to [facility]. 10/16/2025 10:5 6 AM EST 10/16/2025 11:25 AM EST us Generic External Data Provider LAB MICROBIOLOGY - GENERAL ORDERABLES Final Result [facility] [address] [place] [phone] * (ABNORMAL) CBC auto differential (10/16/2025 10:56 AM EST) Only the most recent of2 resultswithin the time period is included. [facility] White Blood Count 5.8 4.8 - 10.8 X10*3/uL [facility] Red Blood Count 4.82 4.20 - 5.50 X10*6/uL [facility] Hemoglobin 13.5 12.0 - 16.0 g/dl [facility] Hematocrit 41.1 37.0 - 47.0 % [facility] Mean Corpuscular Volume 85.3 80.0 - 98.0 fL [facility] Mean Corpuscular Hemoglobin 28.0 27.0 - 33.0 pg [facility] Mean Corpuscular HGB Conc 32.8 31.0 - 35.0 g/dl [facility] Red Cell Distribution Width 12.3 11.0 - 16.0 % [facility] Platelet Count 290 160 - 400 X10*3/uL [facility] Mean Platelet Volume 10.1 9.4 - 12.3 fL [facility] Neutrophils Percent Auto 58.1 45 - 73 % [facility] Imm Gran Pct Auto 0.3 0.0 - 0.4 % [facility] Lymphocytes Percent Auto 28.0 20 - 40 % [facility] Monocytes Percent Auto 7.5 2 - 11 % [facility] Eosinophils Percent Auto 5.8(H) 0 - 4 % [facility] Basophils Percent Auto 0.3 0 - 2 % [facility] NRBC Pct Auto 0.0 0.0 - 0.2 /100WBC [facility] Neutrophils Absolute Auto 3.4 2.0 - 8.3 x10*3/uL [facility] Imm Gran Abs Auto 0.02 0.00 - 0.03 X10*3/uL [facility] Lymphocytes Absolute Auto 1.6 1.2 - 4.9 X10*3/uL [facility] Monocytes Absolute Auto 0.4 0.1 - 1.2 X10*3/uL [facility] Eosinophils Absolute Auto 0.3 0.0 - 0.4 X10*3/uL [facility] Basophils Absolute Auto 0.0 0.0 - 0.2 X10*3/uL [facility] NRBC Abs Auto 0.000 0.0 - 0.012 X10*3/uL [facility] 10/16/2025 10:5 6 AM EST 10/16/2025 11:25 AM EST us Generic External Data Provider LAB BLOOD ORDERAB LES Final Result [facility] [address] [place] [address] [phone] * hCG, Total, Quantitative (10/16/2025 10:56 AM EST) HCG Quantitative <2 mIU/mL [facility] Comment:Weeks post LMP Appro ximate hCG(Last Menstrual Period) Range (mIU/ml)3 - 4 weeks 9 - 1304 - 5 weeks 75 - 2,6005 - 6 weeks 850 - 20,8006 - 7 weeks 4000 - 100,2007 - 12 weeks 11,500 - 289,19375 - 16 weeks 18,300 - 137,13119 - 29 weeks (2nd trimester) 1,400 - 53,68646 - 41 weeks (3rd trimester) 940 - [...] Provider LAB BLOOD ORDERAB LES Final Result [facility] [address] [place] [phone] * (ABNORMAL) Hepatic Function Panel (10/16/2025 10:56 AM EST) Only the most recent of2 resultswithin the time period is included. Bilirubin, Total 0.7 0.0 - 1.0 mg/dL [facility] Bilirubin, Direct 0.2 0.0 - 0.5 mg/dL [facility] Aspartate Amino Transferase 32(H) 5 - 31 U/L [facility] Alanine Aminotransferase 58(H) 0 - 31 U/L [facility] Total Protein 7.7 6.5 - 8.0 g/dL [facility] Albumin Level 4.7 3.5 - 5.0 g/dL [facility] Alkaline Phosphatase 66 39 - 117 U/L [facility] 10/16/2025 10:5 6 AM EST 10/16/2025 11:25 AM EST us Generic External Data Provider LAB BLOOD ORDERAB LES Final Result Performing Organization Address City/[facility]/ZIP Co de Phone Number [facility] [address] [place] [address] [phone] * (ABNORMAL) Basic Metabolic Panel (10/16/2025 10:56 AM EST) Only the most recent of2 resultswithin the time period is included. Sodium 138 135 - 145 mmol/L [facility] Potassium 4.3 3.3 - 5.1 mmol/L [facility] Chloride 105 96 - 108 mmol/L [facility] Carbon Dioxide 26 22 - 29 mmol/L [facility] Anion Gap 11(L) 12 - 20 [facility] Urea Nitrogen (BUN) 11 9 - 16 mg/dL [facility] Creatinine, Serum 0.71 0.5 - 1.4 mg/dL [facility] Creatinine Clr Calc Pharmacy 128.2 [facility] Comment:Provided height and weight: 167.64 cm,103.9 kg.eGFR (calculated from the MDRD study equation) and eCrCl(calculated from the Cockcroft-Gault equation) are based ondifferent parameters and may not yield comparable results.If eCrCl result is absurd, please check patient'sheight/weight. Estimated Glomerular Filt Rate >60 [facility] Comment:Chronic Kidney Disea se: Estimated GFR < 60 mL/min/1.24l5Qioqxw Kidney Disease: Estimated GFR < 15 mL/min/1.73m2 Glucose 95 60 - 115 mg/dL [facility] Calcium 9.6 8.4 - 10.2 mg/dL [facility] 10/16/2025 10:5 6 AM EST 10/16/2025 11:25 AM EST us Generic External Data Provider LAB BLOOD ORDERAB LES Final Result [facility] [address] [place] [address] [phone] * Culture, Urine, Routine (10/16/2025 12:00 AM EST) Urine Urine specimen obtained by clean catch procedure / Unknown 10/16/2025 10/16/2025 Comment:UACC Narrative [facility] - 10/17/2025 2:30 PM EST Urine Culture Report Result Urine Culture 10,000 to 50,000 cfu/ml Urine Culture Mixed bacterial rylie characteristic of Urine Culture urogenital contamination. Strep agalactiae (Grp B) Quant < 10,000 cfu/mL Susc N/A Susceptibility not routinely performed on this isolate. Specimen Source: Urine clean catch us Generic External Data Provider LAB MICROBIOLOGY - GENERAL ORDERABLES Final Result Performing Organization Address City/[facility] Co de Phone Number [facility] [address] [place] [phone] * Syphilis Screen (09/11/2025 11:38 AM EST) Syphilis Screen Nonreactive Nonreactive [facility] Blood Venous blood specimen / Unknown 09/11/2025 11:38 AM EST 09/11/2025 12:58 PM EST Poonam Mcdonnell MD LAB BLOOD ORDERABLES Final Result Performing Organization Address City/[facility] Co de Phone Number [facility] [address] [place] [phone] * Vitamin D, 25-Hydroxy, Total, Immunoassay (09/11/2025 11:38 AM EST) Vitamin D 25-OH Total 41.1 >30 ng/mL [facility] Comment: Health Based Reference Values*< 20 ng/mL Awfprqgju81-95 ng/mL Insufficient> 30 ng/mL Sufficient*Raquel LOZANO. N [...] BLOOD ORDERABLES Final Result Performing Organization Address [facility] Co de Phone Number [facility] [address] [place] [phone] * Vitamin B12 (Cobalamin) and Folate Panel, Serum (09/11/2025 11:38 AM EST) Vitamin B12 835 200 - 900 pg/mL [facility] Comment:NORMAL 200-900 PG/ML INDETERMINATE 160-199 PG/ML DEFICIENT < 160 PG/ML Folate 9.2 > or = 4.0 ng/mL [facility] Comment:Reference Values:> o r = [...] BLOOD ORDERABLES Final Result Performing Organization Address City/[facility]/ZIP Co de Phone Number [facility] [address] [place] [address] [phone] * TSH with Reflex to Free T4 (09/11/2025 11:38 AM EST) TSH reflex Free T4 1.63 0.32 - 4.0 uIU/mL [facility] Blood 09/11/2025 11:3 8 AM EST 09/11/2025 12:58 PM EST Poonam Mcdonnell MD LAB BLOOD ORDERABLES Final Result Performing Organization Address City/[facility]/ZIP Co de Phone Number [facility] [address] [place] [phone] * Hepatitis C Antibody with Reflex to HCV, RNA, Quantitative, Real-Time PCR (09/11/2025 11:38 AM EST) Hepatitis C Antibody Nonreactive Nonreactive [facility] Comment:Antibodies to HCV no t detected; does not exclude early acuteHCV infection. Blood Venous blood specimen / Unknown 09/11/2025 11:38 AM EST 09/11/2025 12:58 PM EST Result [facility] Poonam Mcdonnell MD LAB BLOOD ORDERABLES Final Result Performing Organization Address City/[facility]/ZIP Co de Phone Number [facility] [address] [place] [phone] * Iron And Total Iron Binding Capacity (09/11/2025 11:38 AM EST) Iron 83 30 - 160 mcg/dL [facility] Total Iron Binding Capacity 270 228 - 428 mcg/dL [facility] Percent Iron Saturation 31 15 - 50 % [facility] Unsaturated Iron Binding 187 ug/dL [facility] Blood Venous blood specimen / Unknown 09/11/2025 11:38 AM EST 09/11/2025 12:58 PM EST Poonam Mcdonnell MD LAB BLOOD ORDERABLES Final Result Performing Organization Address [facility] Co de Phone Number [facility] [address] [place] [phone] * HIV-1/2 Antigen and Antibodies, Fourth Generation, with Reflexes (09/11/2025 11:38 AM EST) HIV AB/AG Nonreactive Nonreactive [facility] Comment:HIV-1 p24 Ag and/or HIV-1/HIV-2 Ab not detected.A test result that is nonreactive does not exclude thepossibility of exposure to or infection with HIV-1 and/orHIV-2. Nonreactive results in this assay for individualswith prior exposure to HIV-1 and/or HIV-2 may be due toantigen and antibody levels that are below the limit ofdetection of this assay.The [email or web address] HIV Ag/Ab Combo assay result andsupplemental assay results should be interpreted inconjunction with the patient's clinical presentation,history and other laboratory results. If the results areinconsistent with clinical evidence, additional testing issuggested to confirm the result. Blood Venous blood specimen / Unknown 09/11/2025 11:38 AM EST 09/11/2025 12:58 PM EST Poonam Mcdonnell MD LAB BLOOD ORDERABLES Final Result Performing Organization Address [facility] Co de Phone Number [facility] [address] [place] [phone] * Hemoglobin A1c (09/11/2025 11:38 AM EST) Hemoglobin A1c 5.5 <6.0 % [facility] Comment:Hemoglobin A1C Refer ence Range Adults: 4.8 - 6.0 % Non diabetic: < 6.0 % Goal: < 7.0 %Additional Action Suggested: > 8.0 %Note: Hemoglobin A1c results are invalid for patients with abnormal amounts of HbF. Blood transfusions may impact the HbA1c concentration in the patient sample. Estimated Average Glucose 111 mg/dL [facility] Comment:eAG = Estimated ave rage glucose which is %A1C expressed asaverage glucose, using the formula of the H9W-AgmrigaSjvelyq Glucose study (ADAG), Diabetes Care, Vol.31,#8,May. 2007 Blood Venous blood specimen / Unknown 09/11/2025 11:38 AM EST 09/11/2025 12:58 PM EST Poonam Mcdonnell MD LAB BLOOD ORDERABLES Final Result Performing Organization Address City/[facility]/ZIP Co de Phone Number [facility] [address] [place] [phone] * Ferritin (09/11/2025 11:38 AM EST) Ferritin 221 10 - 250 ng/mL [facility] Blood Venous blood specimen / Unknown 09/11/2025 11:38 AM EST 09/11/2025 12:58 PM EST Poonam Mcdonnell MD LAB BLOOD ORDERABLES Final Result Performing Organization Address [facility] Co de Phone Number [facility] [address] [place] [phone] * (ABNORMAL) Lipid Panel, Standard (09/11/2025 11:38 AM EST) Triglycerides 120 <150 mg/dL [facility] Comment:Desirable Triglyceri de: less than 150 mg/dLBorderline High Triglyceride 150-199 mg/dLHigh Triglyceride: 200-499 mg/dLVery High Triglyceride: greater than or equal to 5OO mg/dL Cholesterol 181 <200 mg/dL [facility] Comment:Desirable Cholestero l: less than 200 mg/dLBorderline High Cholesterol: 200-239 mg/dLHigh Cholesterol: greater than 239 mg/dL LDL Cholesterol Calculated 114(H) <100 mg/dL [facility] Comment:Desirable LDL: less than 100 mg/dLNear Optimal/Above Optimal LDL: 110- 129 mg/dLBorderline High LDL: 130-159 mg/dLHigh LDL: 160-189 mg/dLVery High LDL: greater than or equal to 190 mg/dL HDL Cholesterol 43 >40 mg/dL [facility] Comment:Desirable HDL: great er than 40 mg/dL Note: This HDL assay may give artificially low results in patients with liver disease. Blood Venous blood specimen / Unknown 09/11/2025 11:38 AM EST 09/11/2025 12:58 PM EST Poonam Mcdonnell MD LAB BLOOD ORDERABLES Final Result Performing Organization Address [facility] Co de Phone Number [facility] [address] [place] [phone] * HPV DNA, Low/High Risk (09/11/2025 11:14 AM EST) HPV High Risk Negative Negative [facility] HPV Genotype 16 Negative Negative [facility] HPV Genotype 18 Negative Negative [facility] Comment:HPV testing performe d at [facility] (CLIA#[id number]), [address] [place] [address].Testing for HPV was performed using the Meryl [...] 4 AM EST 09/12/2025 7:54 AM EST Poonam Mcdonnell MD LAB BLOOD ORDERABLES Final Result Performing Organization Address [facility] Co de Phone Number [facility] [address] [place] [phone] * Pap Smear (09/11/2025 11:14 AM EST) Swab 09/11/2025 11:1 4 AM EST 09/12/2025 7:54 AM EST [facility] - 09/17/2025 11:01 AM EST ----- ------- Name: Amna Fields Age/Sex: 40/F : 1985 Unit#: [id number] Attend Dr: Poonam Mcdonnell MD Re09/11/25 Status: [facility] REF Location: [facility] Disch: ----- ------- SPEC : [id number] RECD: 09/12/25 STATUS: JEREMIAH KATE NUM: [id number] JACOB: 09/11/[address] [facility] DR: Poonam Mcdonnell MD ENTERED: 09/12/25 SP TYPE: Pap Smr [facility] DR: ORDERED: Pap Smear Interpretation Satisfactory for [...] and HPV testing will be performed at [facility] (CLIA #[id number]), [address] [place] [address]. Testing for HPV was performed using the [...] detected. All professional services are performed by [facility] ([address] [place] [address], [place] [address]; ; CLIA #[id number]). The PAP Test is a screening procedure with the inherent possibility of both false negative and false positive results. Results should be interpreted in the context of historic and current clinical findings. Reliability of the PAP Test is enhanced by performing the test on a regular repetitive basis. CONTINUED ON NEXT PAGE ----- ------- Name: Amna Fields Age/Sex: 40/F : 1985 Unit#: [id number] Attend Dr: Poonam Mcdonnell MD Re09/11/25 Status: DEP REF Location: [facility] Disch: ----- ------- SPEC : [id number] RECD: 09/12/25 STATUS: JEREMIAH KATE NUM: [id number] JACOB: 09/11/[address] [facility] DR: Poonam Mcdonnell MD ENTERED: 09/12/25 SP TYPE: Pap Smr [facility] DR: ORDERED: Pap Smear ----- ------- Signed (signature on file) JIE Alfred (ASCP) 09/17/25 1101 ----- ------- END OF REPORT Poonam Mcdonnell MD LAB CYTOLOGY ORDERABLES Fi nal Result [facility] [address] [place] [address] [phone] from Last [address] [place] [address] [place] [address] C3 * Guarantor: Amna Lopez Account Type Relation to Patient Date of Phone Billing Address Personal/Family Self [place], [place] Advance Directives Documents on File Type Date Recorded Patient Therapy Technician Expl anation Advance Directives and Living Will 09/12/2025 1:24 PM Health Care Proxy 09/11/25 Care Teams Pest Controller Relationship Specialty Start Date End Date Poonam Mcdonnell MD [address] [place] [phone] PCP - General Family Medicine 08/20/12
--- OUTSIDE RECORDS SUMMARY | 2025-10-21 08:47 | XMS_ITS | Encounter Summary ---
Author Organization [facility] Address [address] [place] [address] [address] [place] [address] Care Team Providers Care Defect Cutter Name Role Phone Poonam Mcdonnell MD Primary Care Provider [phone] Reason for Visit * Reason Onset Date Comments Triage 03/01/2023 Encounter Details Date Type Department Care Team ([facility] st Contact Info) Description 03/01/2023 Telephone [facility] [address] [place], [place] [phone] Poonam Mcdonnell MD [address] [place] [address] Triage Social History Tobacco Use Types Packs/Day [...] 03/01/2023 9:39 AM EDT Triage call with [place] [employer] Supervisor ID [id number] Pt was seen in [facility] for low back and left hip [...] F follow up appointment. Patient hospitalized at [facility]. Patient was admitted on 02/28/2023 and discharged on 02/28/2023. Patient was advised will forward to triage nurse for follow up and appointment scheduling. Please contact pt at [phone] [facility] Diagnostics: Hip Pain Severe documented in this encounter Plan of Treatment Not on file documented as of this encounter Visit Diagnoses Not on filedocumented in this encounter Care Teams Defect Cutter Relationship Specialty Start Date End Date Poonam Mcdonnell MD [address] [place] [phone] PCP - General Family Medicine 08/20/12 documented as of this encounter
--- OUTSIDE RECORDS SUMMARY | 2025-10-21 08:47 | XMS_ITS | Encounter Summary ---
Author Organization [facility] Address [address] [place] [address] [address] [place] [address] Care Team Providers Care Policy Analyst Name Role Phone Poonam Mcdonnell MD Primary Care Provider [phone]- [phone] Encounter Details Date Type Department Care Team (Late st Contact Info) Description 12/27/2022 Abstract [facility] [address] [place] [address] Poonam Mcdonnell MD [address] [place] [address] Social History Tobacco Use Types Packs/Day Years [...] on filedocumented in this encounter Care Teams Policy Analyst Relationship Specialty Start Date End Date Poonam Mcdonnell MD [address] [place] [address] PCP - General Family Medicine 08/20/12 documented as of this encounter
== END 2025-10-21 09:32 | disposition home or self-care (01) ==
LOC: HO.HSMS 08:36
PROVIDERS: PCP Family Medicine; Visit Provider Physician Assistant Medical
DX: R06.83 Snoring (principal); G44.221 Chronic tension-type headache, intractable; G47.19 Other hypersomnia
CPT/HCPCS: 99204

== ENCOUNTER → 2025-10-21 08:35 | Outpatient (BNVA) | payer MEDICAID, SELFPAY | PROVIDERS: PCP Family Medicine; Visit Provider Physician Assistant Medical | DX: G47.19 Other hypersomnia (principal); G44.221 Chronic tension-type headache, intractable; G25.81 Restless legs syndrome; R06.83 Snoring; Z71.89 Other specified counseling | CPT/HCPCS: 99212 ==